=== PATIENT | female | born 1940 | race Caucasian/White ===

== ENCOUNTER 2016-10-09 13:19 | Emergency (ER) | payer MEDICARE ==
[~2016-10-09] VITALS: Ht 147.3 cm; Wt 63.5 kg
[~2016-10-09 13:19] MED LIST: CAT.1 PO; FERR325T30 PO; HYDR25TA4 PO; INSU10VI5 SQ; LISI-600 PO; METF1000 PO; NEU100 PO; NITR-85 PO; NOR10 PO; SITA100T7 PO
[2016-10-09 13:20] VITALS: BP 124/57; PULSE 55; RESP 18; TEMP 97.2; O2SAT 97
--- NOTE | 2016-10-09 14:38 | NUR ---
Patient to ER bed 8 to gown for evaluation. Side rails up. Report given to Efren CROUCH.
--- NOTE | 2016-10-09 14:40 | NUR ---
ED MD Gee at bedside for Medical Evaluation.
--- NOTE | 2016-10-09 14:45 | NUR ---
PT brought in to ED with chief complain of CASTELLANO, Nausea and dizziness secondary to a fall sustained 4 hours ago. PT states possible loss of consciousness. Reports CASTELLANO of 11/28. States she feels lethargic. Pupils PERRLA. No deformity noted to the skull. No bleeding or drainage noted. Daughter at bedside.
--- NOTE | 2016-10-09 14:50 | NUR ---
PT off unit for CT. Transported by jeanne
--- NOTE | 2016-10-09 15:05 | NUR ---
PT transported back to unit via [facility].
[2016-10-09 15:58] VITALS: BP 128/54; PULSE 62; RESP 18; TEMP 97.2; O2SAT 97
--- NOTE | 2016-10-09 15:58 | NUR ---
Patient and daughter given written and verbal discharge instructions and verbalizes understanding. ER MD discussed with patient and daughter the results and treatment provided. Patient in stable condition. ID arm band removed. No Rx given. Patient and daughter educated on pain management and to follow up with PMD. Pain Scale 0/10. Opportunity for questions provided and answered.
== END 2016-10-09 15:58 | disposition home or self-care (01) ==
LOC: SED 13:39
DX: R51 Headache (principal); R11.0 Nausea; R42 Dizziness and giddiness; W01.0XXA Fall on same level from slipping, tripping and stumbling without subsequent striking against object, initial encounter; Z91.81 History of falling; Y93.89 Activity, other specified; Y92.89 Other specified places as the place of occurrence of the external cause; Y99.8 Other external cause status
CPT/HCPCS: 70450-TC; 72125-TC; 99284

== ENCOUNTER 2018-03-15 10:18 | Emergency (ER) | payer MEDICARE ==
[~2018-03-15] VITALS: Ht 152.4 cm; Wt 72.6 kg
[~2018-03-15 10:18] MED LIST changes: -FERR325T30 PO; -HYDR25TA4 PO; -INSU10VI5 SQ; -LISI-600 PO; -NEU100 PO; +SITA100T11 PO; -SITA100T7 PO
[2018-03-15 10:22] VITALS: BP_SYST 147
[2018-03-15] MEDS ORDERED: DIPH-TET Vacc 0.5 ML VIAL I.M. ONE (11:30)
[2018-03-15] MEDS ORDERED: BACITRACIN 1 GM OINT TP ONE (11:40)
[2018-03-15] MEDS ORDERED: HYDROcodone/ACETAMIN 5-325 MG TAB (NORCO/ VICODIN) PO ONE (11:45)
[2018-03-15 11:52] VITALS: BP_SYST 147
== END 2018-03-15 11:53 | disposition home or self-care (01) ==
LOC: SED 10:18
DX: S00.01XA Abrasion of scalp, initial encounter (principal); E11.9 Type 2 diabetes mellitus without complications; I10 Essential (primary) hypertension; Z90.89 Acquired absence of other organs; Z90.49 Acquired absence of other specified parts of digestive tract; Z90.710 Acquired absence of both cervix and uterus; W19.XXXA Unspecified fall, initial encounter; Y93.89 Activity, other specified; Y92.89 Other specified places as the place of occurrence of the external cause; Y99.8 Other external cause status
CPT/HCPCS: 70450-TC; 90714; 99284

== ENCOUNTER 2018-04-04 19:24 | Emergency (ER) | payer MEDICARE ==
[~2018-04-04] VITALS: Ht 152.4 cm; Wt 62.6 kg
[2018-04-04 19:29] VITALS: BP_SYST 162
--- NOTE | 2018-04-04 19:34 | NUR ---
Patient triaged and placed in waiting room. VSS and patient appears in no acute distress at this time. Accompanied by daughter, awaiting available bed, and MD notified of need for MSE.
--- NOTE | 2018-04-04 19:55 | NUR ---
Pt came in AAOX4 presenting of generalized weakness. Has history of DM, HPN, Glaucoma, arthritis, hysterectomy and gall bladder removal. No allergies noted. Denies pain, fever and shortness of breath. Safety precaution observed, side rails up. Will continue to monitor Pt.
--- NOTE | 2018-04-04 20:00 | NUR ---
Placed in room 03 . Placed on case monitor, blood pressure machine and pulse oximeter. To gown for exam. Side rails up. Report given to MIKO Jacome.
[2018-04-04] MEDS ORDERED: NACL 0.9% 1,000 ML IV ONE (20:07)
--- NOTE | 2018-04-04 20:10 | NUR ---
RICKY Matos at bedside for medical evaluation.
--- NOTE | 2018-04-04 20:20 | NUR ---
X-ray at bedside
[2018-04-04 20:31] LABS: BILIRUBIN,URINE NEGATIVE (NEGATIVE); BLOOD, URINE NEGATIVE (NEGATIVE); CLARITY/URINE CLEAR (CLEAR); COLOR,URINE YELLOW (YELLOW); GLUCOSE,URINE 1+ (NEGATIVE); KETONES,URINE NEGATIVE (NEGATIVE); LEUKOCYTE ESTERASE ,URINE 1+ (NEGATIVE); NITRITE, URINE NEGATIVE (NEGATIVE); PROTEIN URINE NEGATIVE (NEGATIVE); UROBILINOGEN,URINE 0.2 (0.2-1.0)
[2018-04-04 20:36] LABS: BASOPHILS # (AUTO) 0.1 K/uL (0.0-0.2); BASOPHILS % (AUTO) 1.6 % (0.0-2.0); EOSINOPHILS # (AUTO) 0.2 K/uL (0.0-0.4); EOSINOPHILS % (AUTO) 3.3 % (0.0-4.0); HEMATOCRIT 39.9 % (36-48); LYMPHOCYTES # (AUTO) 1.5 K/uL (1.0-5.5); LYMPHOCYTES % (AUTO) 26.9 % (20.5-51.5); MEAN CORPUSCULAR HEMOGLOBIN 30 pg (27-31); MEAN CORPUSCULAR HGB CONC 33 % (32-36); MEAN CORPUSCULAR VOLUME 91 fL (79.0-98.0); MONOCYTES # (AUTO) 0.5 K/uL (0.0-1.0); MONOCYTES % (AUTO) 9.3 % (1.7-9.3); NEUTROPHILS # (AUTO) 3.2 K/uL (1.8-7.7); NEUTROPHILS % (AUTO) 58.9 % (40.0-70.0); PLATELET COUNT (AUTO) 310 K/uL (130-430); RED BLOOD CELL COUNT(AUTO) 4.36 MIL/uL (4.2-6.2); RED CELL DISTRIBUTION WIDTH 12.6 % (9.0-15.0); WHITE BLOOD COUNT (AUTO) 5.5 K/uL (4.8-10.8)
[2018-04-04 20:43] LABS: RBC,URINE 0-3 /HPF (0-3)
[2018-04-04 20:44] LABS: BACTERIA,URINE FEW /HPF (None Seen); MUCUS,URINE None Seen /LPF (None Seen)
[2018-04-04 20:56] LABS: ANION GAP 8 (5-15); CALCIUM 9.3 mg/dL (8.4-11.0); CHLORIDE 98 mmol/L (98-107); CREATININE 0.98 mg/dL (0.55-1.30); GLUCOSE 256 mg/dL (70-99); SODIUM SERUM 132 mmol/L (136-145); UREA NITROGEN, BLOOD 11 mg/dL (8-21)
[2018-04-04 21:01] LABS: ALANINE AMINOTRANSFERASE 18 U/L (12-78); ALBUMIN 4.1 g/dL (3.4-4.8); ASPARTATE AMINOTRANSFERASE 13 U/L (10-37); TOTAL BILIRUBIN 0.5 mg/dL (0.0-1.0)
[2018-04-04 21:30] VITALS: BP_SYST 146
--- NOTE | 2018-04-04 21:30 | NUR ---
Patient given written and verbal discharge instructions and verbalizes understanding. ER MD Matos discussed with patient the results and treatment provided. Patient in stable condition. ID arm band removed. IV catheter removed intact and dressing applied, no active bleeding. Rx of cipro given. Patient educated on pain management and to follow up with PMD. Pain Scale 0/10. Opportunity for questions provided and answered. Medication side effect fact sheet provided.
== END 2018-04-04 21:30 | disposition home or self-care (01) ==
LOC: SED 19:24
DX: N39.0 Urinary tract infection, site not specified (principal); E11.9 Type 2 diabetes mellitus without complications; I10 Essential (primary) hypertension; Z90.49 Acquired absence of other specified parts of digestive tract; Z90.710 Acquired absence of both cervix and uterus; Z98.890 Other specified postprocedural states; Z79.899 Other long term (current) drug therapy
CPT/HCPCS: 36415; 71045; 80053; 81000; 85025; 87086; 93005; 99285; J7030

== ENCOUNTER 2019-01-26 14:18 | Emergency (ER) | payer MEDICARE ==
[~2019-01-26] VITALS: Ht 149.9 cm; Wt 64.4 kg
[2019-01-26 14:31] VITALS: BP_SYST 165
[2019-01-26] MEDS ORDERED: NEU100 PO (14:46)
[2019-01-26] MEDS ORDERED: FAMO40TA7 PO (14:46)
[2019-01-26] MEDS ORDERED: METF1000 PO (14:46)
[2019-01-26] MEDS ORDERED: INSNLG7030 SUBCUT (14:46)
[2019-01-26] MEDS ORDERED: LISI40TA4 PO (14:46)
[2019-01-26] MEDS ORDERED: HYDR12.585 PO (14:46)
[2019-01-26] MEDS ORDERED: MECLIZINE HCL 25 MG TABLET (ANITVERT) PO ONE (15:15)
[2019-01-26 15:32] LABS: BASOPHILS % (AUTO) 0.4 % (0.0-2.0); EOSINOPHILS # (AUTO) 0.1 K/uL (0.0-0.4); EOSINOPHILS % (AUTO) 0.7 % (0.0-4.0); HEMATOCRIT 38.1 % (36-48); HEMOGLOBIN 12.9 g/dL (12.0-16.0); LYMPHOCYTES % (AUTO) 11.7 % (20.5-51.5); MEAN CORPUSCULAR HEMOGLOBIN 30 pg (27-31); MEAN CORPUSCULAR HGB CONC 34 % (32-36); MEAN CORPUSCULAR VOLUME 89 fL (79.0-98.0); MONOCYTES # (AUTO) 0.3 K/uL (0.0-1.0); MONOCYTES % (AUTO) 3.9 % (1.7-9.3); NEUTROPHILS # (AUTO) 7.4 K/uL (1.8-7.7); NEUTROPHILS % (AUTO) 83.3 % (40.0-70.0); PLATELET COUNT (AUTO) 216 K/uL (130-430); RED BLOOD CELL COUNT(AUTO) 4.27 MIL/uL (4.2-6.2); RED CELL DISTRIBUTION WIDTH 13.6 % (9.0-15.0); WHITE BLOOD COUNT (AUTO) 8.9 K/uL (4.8-10.8)
[2019-01-26 15:42] LABS: ANION GAP 11 (5-15); CALCIUM 8.7 mg/dL (8.4-11.0); CHLORIDE 95 mmol/L (98-107); CREATININE 0.64 mg/dL (0.55-1.30); GLUCOSE 114 mg/dL (70-99); POTASSIUM 3.9 mmol/L (3.5-5.1); SODIUM SERUM 131 mmol/L (136-145); UREA NITROGEN, BLOOD 11 mg/dL (8-21)
[2019-01-26 15:48] LABS: ALANINE AMINOTRANSFERASE 11 U/L (12-78); ALBUMIN 3.6 g/dL (3.4-4.8); ASPARTATE AMINOTRANSFERASE 17 U/L (10-37); TOTAL BILIRUBIN 0.9 mg/dL (0.0-1.0)
== END 2019-01-26 16:48 | disposition home or self-care (01) ==
LOC: SED 14:18
DX: H81.10 Benign paroxysmal vertigo, unspecified ear (principal); F41.9 Anxiety disorder, unspecified
CPT/HCPCS: 36415; 71045; 80053; 81002; 82550; 84484; 85025; 93005; 99284; J8597

== ENCOUNTER 2020-06-10 15:22 | Inpatient (IN) | payer MEDICAID, MEDICARE, SELFPAY ==
[~2020-06-10] VITALS: Ht 149.9 cm; Wt 57.6 kg
[~2020-06-10 15:22] MED LIST changes: -CAT.1 PO; +FAMO40TA7 PO; +HYDR12.585 PO; +INSNLG7030 SUBCUT; +LISI40TA4 PO; +NEU100 PO; -NITR-85 PO; -SITA100T11 PO
[2020-06-10 15:54] VITALS: BP_SYST 136
[2020-06-10 16:42] LABS: BASOPHILS % (AUTO) 0.2 % (0.0-2.0); HEMATOCRIT 34.9 % (36-48); LYMPHOCYTES # (AUTO) 0.5 K/uL (1.0-5.5); LYMPHOCYTES % (AUTO) 9.5 % (20.5-51.5); MEAN CORPUSCULAR HEMOGLOBIN 30 pg (27-31); MEAN CORPUSCULAR HGB CONC 34 % (32-36); MEAN CORPUSCULAR VOLUME 88 fL (79.0-98.0); MONOCYTES # (AUTO) 0.2 K/uL (0.0-1.0); MONOCYTES % (AUTO) 4.3 % (1.7-9.3); NEUTROPHILS # (AUTO) 4.5 K/uL (1.8-7.7); PLATELET COUNT (AUTO) 261 K/uL (130-430); RED BLOOD CELL COUNT(AUTO) 3.96 MIL/uL (4.2-6.2); RED CELL DISTRIBUTION WIDTH 12.7 % (9.0-15.0); WHITE BLOOD COUNT (AUTO) 5.2 K/uL (4.8-10.8)
[2020-06-10] MEDS ORDERED: DEXAMETHASONE SOD PHOSPHATE 10 MG/ML VIAL IVP ONE (16:45)
[2020-06-10] MEDS ORDERED: cefTRIAXone 1 GM in D5W 50 ML IV ONE (16:45)
[2020-06-10] MEDS ORDERED: AZITHROMYCIN 500 MG in NS 250 ML IV ONE (16:45)
[2020-06-10 17:04] LABS: ANION GAP 11 (5-15); CALCIUM 8.6 mg/dL (8.4-11.0); CHLORIDE 94 mmol/L (98-107); CREATININE 0.84 mg/dL (0.55-1.30); GLUCOSE 120 mg/dL (70-99); POTASSIUM 3.3 mmol/L (3.5-5.1); SODIUM SERUM 131 mmol/L (136-145); UREA NITROGEN, BLOOD 13 mg/dL (8-21)
[2020-06-10 17:09] LABS: ALANINE AMINOTRANSFERASE 19 U/L (12-78); ASPARTATE AMINOTRANSFERASE 28 U/L (10-37); LACTATE DEHYDROGENASE 328 U/L (81-234); TOTAL BILIRUBIN 0.5 mg/dL (0.0-1.0)
[2020-06-10 17:17] LABS: PROTHROMBIN TIME 9.9 SECS (9.5-12.5)
[2020-06-10 17:43] LABS: C-REACTIVE PROTEIN QUANT 25.9 mg/dL (0-0.5)
[2020-06-10] MEDS ORDERED: cefTRIAXone 1 GM VIAL ONE (17:45)
[2020-06-10] MEDS ORDERED: AZITHROMYCIN 500 MG/VIAL (ZITHROMAX) IV ONE ×2 (17:46→17:47)
[2020-06-10 19:08] LABS: BILIRUBIN,URINE NEGATIVE (NEGATIVE); BLOOD, URINE NEGATIVE (NEGATIVE); CLARITY/URINE CLOUDY (CLEAR); COLOR,URINE YELLOW (YELLOW); GLUCOSE,URINE NEGATIVE (NEGATIVE); KETONES,URINE NEGATIVE (NEGATIVE); LEUKOCYTE ESTERASE ,URINE NEGATIVE (NEGATIVE); NITRITE, URINE NEGATIVE (NEGATIVE); PROTEIN URINE 2+ (NEGATIVE); UROBILINOGEN,URINE 0.2 (0.2-1.0)
[2020-06-10 20:23] LABS: BACTERIA,URINE MANY /HPF (None Seen); MUCUS,URINE None Seen /LPF (None Seen); RBC,URINE NONE SEEN /HPF (0-3); WBC,URINE 0-3 /HPF (0-3)
[2020-06-10 23:00] VITALS: BP_SYST 155
[2020-06-11 02:00] VITALS: BP_SYST 139
[2020-06-11] MEDS ORDERED: ALBUTEROL SULFATE 0.083% 2.5 MG/3 ML VIAL.NEB INH PRN (06:45)
[2020-06-11] MEDS ORDERED: HYDROcodone/ACETAMIN 5-325 MG TAB (NORCO/ VICODIN) PO PRN (06:45)
[2020-06-11] MEDS ORDERED: NALOXONE HCL 0.4 MG/ML AMP (NARCAN) IVP PRN ×2 (06:45)
[2020-06-11] MEDS ORDERED: ACETAMINOPHEN 325 MG TABLET PO PRN (06:45)
[2020-06-11] MEDS ORDERED: ONDANSETRON HCL 4 MG/2 ML VIAL IVP PRN (06:45)
[2020-06-11] MEDS ORDERED: HYDROcodone/ACETAMIN 10-325 MG TAB PO PRN (06:45)
[2020-06-11] MEDS ORDERED: LORazepam 2 MG/ML VIAL IVP PRN (06:45)
[2020-06-11] MEDS ORDERED: DEXAMETHASONE SOD PHOSPHATE 10 MG/ML VIAL IVP SCH (06:45)
[2020-06-11] MEDS: ALBUTEROL MDI INHALATION 8 GM INH INH SCH ×4 (07:00→19:50)
[2020-06-11] MEDS ORDERED: IPRATROPIUM BROM 0.5 MG/2.5 ML VIAL.NEB (ATROVENT) INH SCH (07:00)
[2020-06-11] MEDS ORDERED: DEXAMETHASONE SOD PHOSPHATE 10 MG/ML VIAL ONE (10:05)
[2020-06-11] MEDS: metFORMIN HCL 500 MG TABLET PO SCH ×2 (10:07→17:10)
[2020-06-11] MEDS: FAMOTIDINE 20 MG TABLET PO SCH (10:07)
[2020-06-11] MEDS: HYDROCHLOROTHIAZIDE 12.5 MG CAPSULE (HCTZ) PO SCH (10:08)
[2020-06-11] MEDS: amLODIPine BESYLATE 10 MG TABLET PO SCH (10:08)
[2020-06-11 10:09] LABS: BASOPHILS % (AUTO) 0.2 % (0.0-2.0); HEMATOCRIT 36.2 % (36-48); HEMOGLOBIN 12.4 g/dL (12.0-16.0); LYMPHOCYTES # (AUTO) 0.6 K/uL (1.0-5.5); LYMPHOCYTES % (AUTO) 8.4 % (20.5-51.5); MEAN CORPUSCULAR HEMOGLOBIN 30 pg (27-31); MEAN CORPUSCULAR HGB CONC 34 % (32-36); MEAN CORPUSCULAR VOLUME 89 fL (79.0-98.0); MONOCYTES # (AUTO) 0.6 K/uL (0.0-1.0); MONOCYTES % (AUTO) 8.5 % (1.7-9.3); NEUTROPHILS # (AUTO) 5.9 K/uL (1.8-7.7); NEUTROPHILS % (AUTO) 82.9 % (40.0-70.0); PLATELET COUNT (AUTO) 313 K/uL (130-430); RED BLOOD CELL COUNT(AUTO) 4.07 MIL/uL (4.2-6.2); RED CELL DISTRIBUTION WIDTH 12.7 % (9.0-15.0); WHITE BLOOD COUNT (AUTO) 7.2 K/uL (4.8-10.8)
[2020-06-11] MEDS: cefTRIAXone 1 GM IVPB PREMIX 50 ML IV SCH (10:09)
[2020-06-11] MEDS: GABAPENTIN 100 MG CAPSULE PO SCH ×3 (10:09→21:30)
[2020-06-11] MEDS: DEXAMETHASONE SOD PHOSPHATE 10 MG/ML VIAL IVP SCH (10:10)
[2020-06-11] MEDS: AZITHROMYCIN 500 MG in NS 250 ML IV SCH (10:12)
[2020-06-11] MEDS ORDERED: DEXAMETHASONE SOD PHOSPHATE 10 MG/ML VIAL IVP ONE (10:15)
[2020-06-11 10:36] LABS: CALCIUM 8.5 mg/dL (8.4-11.0); CHLORIDE 93 mmol/L (98-107); CREATININE 0.84 mg/dL (0.55-1.30); GLUCOSE 331 mg/dL (70-99); POTASSIUM 3.2 mmol/L (3.5-5.1); SODIUM SERUM 131 mmol/L (136-145); UREA NITROGEN, BLOOD 14 mg/dL (8-21)
[2020-06-11] MEDS: INSULIN NPH/REGULAR 70-30, 100 UNITS/ML, 10 ML VIAL SUBCUT SCH (10:37)
[2020-06-11 10:38] VITALS: BP_SYST 143
[2020-06-11 10:56] LABS: ANION GAP 14 (5-15)
[2020-06-11 11:32] VITALS: BP_SYST 128
[2020-06-11] MEDS ORDERED: AZOEYE RIGHT EYE (12:16)
[2020-06-11] MEDS ORDERED: TIMO5DRO15 RIGHT EYE (12:16)
[2020-06-11] MEDS: INSULIN REGULAR, HUMAN 100 UNITS/ML, 10 ML VIAL (humuLIN R) SUBCUT PRN ×3 (12:28→21:00)
[2020-06-11] MEDS: APIXABAN 2.5 MG TABLET PO SCH ×2 (12:29→21:30)
[2020-06-11 12:36] LABS: ERYTHROCYTE SEDIMENTATION RATE 81 MM/HR (0-20)
[2020-06-11 13:18] LABS: C-REACTIVE PROTEIN QUANT 22.5 mg/dL (0-0.5)
[2020-06-11] MEDS: NORMAL SALINE 5 ML DISP.SYRIN IVF SCH ×2 (13:51→21:30)
[2020-06-11] MEDS ORDERED: NORMAL SALINE 5 ML DISP.SYRIN IVF SCH (14:00)
[2020-06-11] MEDS ORDERED: BRINZOLAMIDE 1% BOTH EYES SCH (14:00)
[2020-06-11 16:13] VITALS: BP_SYST 129
[2020-06-11] MEDS ORDERED: LIPA1CAP23 PO ×2 (16:27)
[2020-06-11] MEDS ORDERED: CREON 36000 UNIT PO PRN (16:45)
[2020-06-11 16:54] VITALS: BP_SYST 129
[2020-06-11] MEDS: CREON 36000 UNIT PO SCH (17:09)
[2020-06-11 21:00] VITALS: BP_SYST 138
[2020-06-11] MEDS: EYE OP SCH (21:30)
[2020-06-11] MEDS: TIMOLOL MALEATE 0.5% OPHTHALMIC DROPS 5 ML OP SCH (21:30)
[2020-06-11] MEDS: lisinopriL 20 MG TABLET PO SCH (21:30)
[2020-06-11] MEDS: AZOPT 1% OP SCH (21:30)
[2020-06-11] MEDS ORDERED: DORZOLAMIDE 2% OPHTHALMIC SOLN 5ML OP SCH (22:00)
[2020-06-11] MEDS ORDERED: DILTIAZEM HCL 30 MG TABLET PO ONE (22:30)
[2020-06-12] VITALS: BP_SYST 106
[2020-06-12] MEDS: ALBUTEROL MDI INHALATION 8 GM INH INH SCH ×6 (00:05→23:53)
[2020-06-12] MEDS: NORMAL SALINE 5 ML DISP.SYRIN IVF SCH ×3 (06:31→22:00)
[2020-06-12 06:33] LABS: BASOPHILS % (AUTO) 0.1 % (0.0-2.0); HEMATOCRIT 35.3 % (36-48); HEMOGLOBIN 11.9 g/dL (12.0-16.0); LYMPHOCYTES # (AUTO) 0.8 K/uL (1.0-5.5); LYMPHOCYTES % (AUTO) 6.9 % (20.5-51.5); MEAN CORPUSCULAR HEMOGLOBIN 30 pg (27-31); MEAN CORPUSCULAR HGB CONC 34 % (32-36); MEAN CORPUSCULAR VOLUME 88 fL (79.0-98.0); MONOCYTES # (AUTO) 0.6 K/uL (0.0-1.0); MONOCYTES % (AUTO) 5.8 % (1.7-9.3); NEUTROPHILS # (AUTO) 9.6 K/uL (1.8-7.7); NEUTROPHILS % (AUTO) 87.2 % (40.0-70.0); PLATELET COUNT (AUTO) 350 K/uL (130-430); RED BLOOD CELL COUNT(AUTO) 4.02 MIL/uL (4.2-6.2); RED CELL DISTRIBUTION WIDTH 13.1 % (9.0-15.0)
[2020-06-12] MEDS: INSULIN REGULAR, HUMAN 100 UNITS/ML, 10 ML VIAL (humuLIN R) SUBCUT PRN ×2 (06:38→21:38)
[2020-06-12 07:19] LABS: ALANINE AMINOTRANSFERASE 14 U/L (12-78); ALBUMIN 2.3 g/dL (3.4-4.8); ANION GAP 13 (5-15); ASPARTATE AMINOTRANSFERASE 36 U/L (10-37); CALCIUM 8.2 mg/dL (8.4-11.0); CHLORIDE 95 mmol/L (98-107); CREATININE 0.71 mg/dL (0.55-1.30); GLUCOSE 172 mg/dL (70-99); PHOSPHORUS 3.7 mg/dL (2.7-4.5); POTASSIUM 3.1 mmol/L (3.5-5.1); SODIUM SERUM 132 mmol/L (136-145); TOTAL BILIRUBIN 0.4 mg/dL (0.0-1.0); UREA NITROGEN, BLOOD 13 mg/dL (8-21)
[2020-06-12 08:00] VITALS: BP_SYST 123
[2020-06-12] MEDS: INSULIN NPH/REGULAR 70-30, 100 UNITS/ML, 10 ML VIAL SUBCUT SCH (08:00)
[2020-06-12] MEDS: metFORMIN HCL 500 MG TABLET PO SCH ×2 (08:00→18:40)
[2020-06-12 09:00] LABS: ERYTHROCYTE SEDIMENTATION RATE 78 MM/HR (0-20)
[2020-06-12] MEDS: amLODIPine BESYLATE 10 MG TABLET PO SCH (09:00)
[2020-06-12] MEDS: FAMOTIDINE 20 MG TABLET PO SCH (09:00)
[2020-06-12] MEDS: EYE OP SCH ×3 (09:00→21:00)
[2020-06-12] MEDS: cefTRIAXone 1 GM IVPB PREMIX 50 ML IV SCH (09:00)
[2020-06-12] MEDS: AZOPT 1% OP SCH ×3 (09:00→21:00)
[2020-06-12] MEDS: GABAPENTIN 100 MG CAPSULE PO SCH ×3 (09:00→21:00)
[2020-06-12] MEDS: CREON 36000 UNIT PO SCH ×3 (09:00→17:00)
[2020-06-12] MEDS: HYDROCHLOROTHIAZIDE 12.5 MG CAPSULE (HCTZ) PO SCH (09:00)
[2020-06-12] MEDS: APIXABAN 2.5 MG TABLET PO SCH ×2 (09:00→21:00)
[2020-06-12] MEDS: DEXAMETHASONE SOD PHOSPHATE 10 MG/ML VIAL IVP SCH (09:00)
[2020-06-12] MEDS: TIMOLOL MALEATE 0.5% OPHTHALMIC DROPS 5 ML OP SCH ×2 (09:00→21:00)
[2020-06-12 10:41] LABS: C-REACTIVE PROTEIN QUANT 17.3 mg/dL (0-0.5)
[2020-06-12] MEDS: AZITHROMYCIN 500 MG in NS 250 ML IV SCH (10:49)
[2020-06-12 11:08] VITALS: BP_SYST 118
[2020-06-12 15:32] VITALS: BP_SYST 110
[2020-06-12 20:00] VITALS: BP_SYST 116; BP_SYST 135
[2020-06-12] MEDS: lisinopriL 20 MG TABLET PO SCH (21:00)
[2020-06-13] VITALS: BP_SYST 125
[2020-06-13] MEDS: ALBUTEROL MDI INHALATION 8 GM INH INH SCH ×4 (03:53→15:48)
[2020-06-13] MEDS: NORMAL SALINE 5 ML DISP.SYRIN IVF SCH ×3 (06:42→22:59)
[2020-06-13] MEDS: INSULIN REGULAR, HUMAN 100 UNITS/ML, 10 ML VIAL (humuLIN R) SUBCUT PRN ×3 (06:47→23:00)
[2020-06-13] MEDS: metFORMIN HCL 500 MG TABLET PO SCH ×2 (08:00→18:13)
[2020-06-13] MEDS: INSULIN NPH/REGULAR 70-30, 100 UNITS/ML, 10 ML VIAL SUBCUT SCH (08:00)
[2020-06-13] MEDS: cefTRIAXone 1 GM IVPB PREMIX 50 ML IV SCH (09:00)
[2020-06-13 09:21] VITALS: BP_SYST 120
[2020-06-13] MEDS: APIXABAN 2.5 MG TABLET PO SCH ×2 (10:00→20:05)
[2020-06-13] MEDS: AZITHROMYCIN 500 MG in NS 250 ML IV SCH (10:00)
[2020-06-13 10:33] LABS: ALANINE AMINOTRANSFERASE 19 U/L (12-78); ALBUMIN 2.2 g/dL (3.4-4.8); ASPARTATE AMINOTRANSFERASE 45 U/L (10-37); CALCIUM 8.3 mg/dL (8.4-11.0); CHLORIDE 95 mmol/L (98-107); CREATININE 0.86 mg/dL (0.55-1.30); GLUCOSE 220 mg/dL (70-99); SODIUM SERUM 133 mmol/L (136-145); TOTAL BILIRUBIN 0.6 mg/dL (0.0-1.0); UREA NITROGEN, BLOOD 21 mg/dL (8-21)
[2020-06-13 10:37] LABS: ANION GAP 13 (5-15)
[2020-06-13 10:38] LABS: HEMATOCRIT 37.1 % (36-48); HEMOGLOBIN 12.5 g/dL (12.0-16.0); LYMPHOCYTES # (AUTO) 0.8 K/uL (1.0-5.5); LYMPHOCYTES % (AUTO) 5.8 % (20.5-51.5); MEAN CORPUSCULAR HEMOGLOBIN 30 pg (27-31); MEAN CORPUSCULAR HGB CONC 34 % (32-36); MEAN CORPUSCULAR VOLUME 88 fL (79.0-98.0); MONOCYTES # (AUTO) 0.7 K/uL (0.0-1.0); MONOCYTES % (AUTO) 5.4 % (1.7-9.3); NEUTROPHILS # (AUTO) 11.9 K/uL (1.8-7.7); NEUTROPHILS % (AUTO) 88.8 % (40.0-70.0); PLATELET COUNT (AUTO) 297 K/uL (130-430); RED CELL DISTRIBUTION WIDTH 12.9 % (9.0-15.0); WHITE BLOOD COUNT (AUTO) 13.4 K/uL (4.8-10.8)
[2020-06-13 10:47] LABS: POTASSIUM 2.8 mmol/L (3.5-5.1)
[2020-06-13] MEDS: CREON 36000 UNIT PO SCH ×3 (10:51→18:13)
[2020-06-13] MEDS: DEXAMETHASONE SOD PHOSPHATE 10 MG/ML VIAL IVP SCH (10:52)
[2020-06-13] MEDS: FAMOTIDINE 20 MG TABLET PO SCH (10:53)
[2020-06-13] MEDS: amLODIPine BESYLATE 10 MG TABLET PO SCH (10:54)
[2020-06-13] MEDS: GABAPENTIN 100 MG CAPSULE PO SCH ×3 (10:55→20:05)
[2020-06-13] MEDS: HYDROCHLOROTHIAZIDE 12.5 MG CAPSULE (HCTZ) PO SCH (10:55)
[2020-06-13] MEDS: AZOPT 1% OP SCH ×3 (10:56→20:05)
[2020-06-13] MEDS: EYE OP SCH ×3 (10:56→20:05)
[2020-06-13] MEDS: TIMOLOL MALEATE 0.5% OPHTHALMIC DROPS 5 ML OP SCH ×2 (10:56→20:05)
[2020-06-13 11:21] VITALS: BP_SYST 118
[2020-06-13 11:40] LABS: C-REACTIVE PROTEIN QUANT 27.8 mg/dL (0-0.5); ERYTHROCYTE SEDIMENTATION RATE 71 MM/HR (0-20)
[2020-06-13 15:16] VITALS: BP_SYST 132
[2020-06-13] MEDS ORDERED: KCL 40 mEq in 100 mL (PREMIX) 100 ML IV ONE (16:00)
[2020-06-13] MEDS: lisinopriL 20 MG TABLET PO SCH (20:05)
[2020-06-13 20:20] VITALS: BP_SYST 138
[2020-06-14] VITALS (13 sets, daily range): BP systolic 123–148
[2020-06-14] MEDS: NORMAL SALINE 5 ML DISP.SYRIN IVF SCH ×2 (06:42→22:00)
[2020-06-14 08:20] LABS: BASOPHILS % (AUTO) 0.1 % (0.0-2.0); EOSINOPHILS # (AUTO) 0.1 K/uL (0.0-0.4); EOSINOPHILS % (AUTO) 0.3 % (0.0-4.0); HEMATOCRIT 36.7 % (36-48); HEMOGLOBIN 12.3 g/dL (12.0-16.0); LYMPHOCYTES # (AUTO) 0.9 K/uL (1.0-5.5); LYMPHOCYTES % (AUTO) 4.7 % (20.5-51.5); MEAN CORPUSCULAR HEMOGLOBIN 30 pg (27-31); MEAN CORPUSCULAR HGB CONC 34 % (32-36); MEAN CORPUSCULAR VOLUME 88 fL (79.0-98.0); MONOCYTES # (AUTO) 0.9 K/uL (0.0-1.0); MONOCYTES % (AUTO) 4.8 % (1.7-9.3); NEUTROPHILS # (AUTO) 17.8 K/uL (1.8-7.7); NEUTROPHILS % (AUTO) 90.1 % (40.0-70.0); PLATELET COUNT (AUTO) 241 K/uL (130-430); RED BLOOD CELL COUNT(AUTO) 4.17 MIL/uL (4.2-6.2); RED CELL DISTRIBUTION WIDTH 13.1 % (9.0-15.0); WHITE BLOOD COUNT (AUTO) 19.8 K/uL (4.8-10.8)
[2020-06-14] MEDS: ALBUTEROL MDI INHALATION 8 GM INH INH SCH ×3 (08:20→23:39)
[2020-06-14 08:59] LABS: ALANINE AMINOTRANSFERASE 22 U/L (12-78); ALBUMIN 2.4 g/dL (3.4-4.8); ANION GAP 14 (5-15); ASPARTATE AMINOTRANSFERASE 58 U/L (10-37); CALCIUM 8.6 mg/dL (8.4-11.0); CHLORIDE 97 mmol/L (98-107); CREATININE 0.64 mg/dL (0.55-1.30); GLUCOSE 149 mg/dL (70-99); SODIUM SERUM 133 mmol/L (136-145); TOTAL BILIRUBIN 0.9 mg/dL (0.0-1.0); UREA NITROGEN, BLOOD 25 mg/dL (8-21)
[2020-06-14 09:35] LABS: C-REACTIVE PROTEIN QUANT 36.5 mg/dL (0-0.5)
[2020-06-14 10:10] LABS: ERYTHROCYTE SEDIMENTATION RATE 67 MM/HR (0-20)
[2020-06-14] MEDS: HYDROCHLOROTHIAZIDE 12.5 MG CAPSULE (HCTZ) PO SCH (10:10)
[2020-06-14] MEDS: DEXAMETHASONE SOD PHOSPHATE 10 MG/ML VIAL IVP SCH (10:10)
[2020-06-14] MEDS: FAMOTIDINE 20 MG TABLET PO SCH (10:10)
[2020-06-14] MEDS: EYE OP SCH ×3 (10:10→21:22)
[2020-06-14] MEDS: CREON 36000 UNIT PO SCH ×2 (10:10→17:00)
[2020-06-14] MEDS: amLODIPine BESYLATE 10 MG TABLET PO SCH (10:10)
[2020-06-14] MEDS: AZOPT 1% OP SCH ×3 (10:10→21:22)
[2020-06-14] MEDS: APIXABAN 2.5 MG TABLET PO SCH ×2 (10:10→21:20)
[2020-06-14] MEDS: GABAPENTIN 100 MG CAPSULE PO SCH ×3 (10:10→21:22)
[2020-06-14] MEDS: TIMOLOL MALEATE 0.5% OPHTHALMIC DROPS 5 ML OP SCH ×2 (10:10→21:22)
[2020-06-14] MEDS: INSULIN NPH/REGULAR 70-30, 100 UNITS/ML, 10 ML VIAL SUBCUT SCH (10:10)
[2020-06-14] MEDS: metFORMIN HCL 500 MG TABLET PO SCH ×2 (10:10→18:21)
[2020-06-14] MEDS: cefTRIAXone 1 GM IVPB PREMIX 50 ML IV SCH (10:10)
[2020-06-14] MEDS: AZITHROMYCIN 500 MG in NS 250 ML IV SCH (10:40)
[2020-06-14] MEDS: INSULIN REGULAR, HUMAN 100 UNITS/ML, 10 ML VIAL (humuLIN R) SUBCUT PRN ×3 (11:46→21:20)
[2020-06-14] MEDS: lisinopriL 20 MG TABLET PO SCH (21:23)
[2020-06-15] VITALS (13 sets, daily range): BP systolic 113–160
[2020-06-15] MEDS: ALBUTEROL MDI INHALATION 8 GM INH INH SCH ×5 (03:44→23:44)
[2020-06-15] MEDS: NORMAL SALINE 5 ML DISP.SYRIN IVF SCH ×3 (05:30→23:09)
[2020-06-15] MEDS: INSULIN REGULAR, HUMAN 100 UNITS/ML, 10 ML VIAL (humuLIN R) SUBCUT PRN ×2 (06:02→17:17)
[2020-06-15 07:38] LABS: BASOPHILS % (AUTO) 0.1 % (0.0-2.0); EOSINOPHILS % (AUTO) 0.2 % (0.0-4.0); HEMATOCRIT 35.4 % (36-48); HEMOGLOBIN 11.9 g/dL (12.0-16.0); LYMPHOCYTES # (AUTO) 0.7 K/uL (1.0-5.5); LYMPHOCYTES % (AUTO) 3.2 % (20.5-51.5); MEAN CORPUSCULAR HEMOGLOBIN 29 pg (27-31); MEAN CORPUSCULAR HGB CONC 34 % (32-36); MEAN CORPUSCULAR VOLUME 87 fL (79.0-98.0); MONOCYTES # (AUTO) 1.1 K/uL (0.0-1.0); MONOCYTES % (AUTO) 4.7 % (1.7-9.3); NEUTROPHILS # (AUTO) 20.7 K/uL (1.8-7.7); PLATELET COUNT (AUTO) 206 K/uL (130-430); RED BLOOD CELL COUNT(AUTO) 4.05 MIL/uL (4.2-6.2); WHITE BLOOD COUNT (AUTO) 22.6 K/uL (4.8-10.8)
[2020-06-15] MEDS: INSULIN NPH/REGULAR 70-30, 100 UNITS/ML, 10 ML VIAL SUBCUT SCH (08:00)
[2020-06-15] MEDS: metFORMIN HCL 500 MG TABLET PO SCH ×2 (08:00→17:46)
[2020-06-15 08:08] LABS: ALANINE AMINOTRANSFERASE 20 U/L (12-78); ALBUMIN 2.1 g/dL (3.4-4.8); ANION GAP 12 (5-15); ASPARTATE AMINOTRANSFERASE 38 U/L (10-37); CALCIUM 8.5 mg/dL (8.4-11.0); CHLORIDE 99 mmol/L (98-107); CREATININE 0.79 mg/dL (0.55-1.30); GLUCOSE 161 mg/dL (70-99); POTASSIUM 3.2 mmol/L (3.5-5.1); SODIUM SERUM 137 mmol/L (136-145); TOTAL BILIRUBIN 0.9 mg/dL (0.0-1.0); UREA NITROGEN, BLOOD 25 mg/dL (8-21)
[2020-06-15] MEDS: CREON 36000 UNIT PO SCH ×3 (09:00→16:16)
[2020-06-15] MEDS: APIXABAN 2.5 MG TABLET PO SCH ×2 (09:00→22:02)
[2020-06-15] MEDS: TIMOLOL MALEATE 0.5% OPHTHALMIC DROPS 5 ML OP SCH ×2 (10:03→21:00)
[2020-06-15] MEDS: EYE OP SCH ×3 (10:03→21:00)
[2020-06-15] MEDS: DEXAMETHASONE SOD PHOSPHATE 10 MG/ML VIAL IVP SCH (10:03)
[2020-06-15] MEDS: AZOPT 1% OP SCH ×3 (10:03→21:00)
[2020-06-15] MEDS: HYDROCHLOROTHIAZIDE 12.5 MG CAPSULE (HCTZ) PO SCH (10:04)
[2020-06-15] MEDS: GABAPENTIN 100 MG CAPSULE PO SCH ×3 (10:04→21:53)
[2020-06-15] MEDS: amLODIPine BESYLATE 10 MG TABLET PO SCH (10:04)
[2020-06-15] MEDS: FAMOTIDINE 20 MG TABLET PO SCH (10:04)
[2020-06-15] MEDS: cefTRIAXone 1 GM IVPB PREMIX 50 ML IV SCH (10:07)
[2020-06-15 10:19] LABS: ERYTHROCYTE SEDIMENTATION RATE 58 MM/HR (0-20)
[2020-06-15] MEDS: AZITHROMYCIN 500 MG in NS 250 ML IV SCH (10:44)
[2020-06-15 11:45] LABS: C-REACTIVE PROTEIN QUANT 24.9 mg/dL (0-0.5)
[2020-06-15 13:43] LABS: NEUTROPHILS % (AUTO) 91.8 % (40.0-70.0)
[2020-06-15] MEDS ORDERED: POTASSIUM CHLORIDE 40 MEQ in NS 250 ML IV ONE (14:15)
[2020-06-15] MEDS: D5/0.45 NS 1,000 ML IV SCH (14:15)
[2020-06-15 15:56] LABS: INR 1.2 (0.8-1.2); PROTHROMBIN TIME 12.7 SECS (9.5-12.5)
[2020-06-15] MEDS: lisinopriL 20 MG TABLET PO SCH (21:57)
[2020-06-16] VITALS (8 sets, daily range): BP systolic 135–157
[2020-06-16] MEDS: INSULIN REGULAR, HUMAN 100 UNITS/ML, 10 ML VIAL (humuLIN R) SUBCUT PRN ×4 (00:32→18:30)
[2020-06-16] MEDS: ALBUTEROL MDI INHALATION 8 GM INH INH SCH ×6 (03:29→23:10)
[2020-06-16 08:51] LABS: BASOPHILS # (AUTO) 0.1 K/uL (0.0-0.2); BASOPHILS % (AUTO) 0.2 % (0.0-2.0); EOSINOPHILS # (AUTO) 0.1 K/uL (0.0-0.4); EOSINOPHILS % (AUTO) 0.5 % (0.0-4.0); HEMATOCRIT 35.6 % (36-48); LYMPHOCYTES # (AUTO) 0.5 K/uL (1.0-5.5); LYMPHOCYTES % (AUTO) 2.3 % (20.5-51.5); MEAN CORPUSCULAR HEMOGLOBIN 30 pg (27-31); MEAN CORPUSCULAR HGB CONC 34 % (32-36); MEAN CORPUSCULAR VOLUME 88 fL (79.0-98.0); MONOCYTES # (AUTO) 0.8 K/uL (0.0-1.0); MONOCYTES % (AUTO) 3.5 % (1.7-9.3); NEUTROPHILS # (AUTO) 21.8 K/uL (1.8-7.7); NEUTROPHILS % (AUTO) 93.5 % (40.0-70.0); PLATELET COUNT (AUTO) 181 K/uL (130-430); RED BLOOD CELL COUNT(AUTO) 4.05 MIL/uL (4.2-6.2); RED CELL DISTRIBUTION WIDTH 13.2 % (9.0-15.0); WHITE BLOOD COUNT (AUTO) 23.3 K/uL (4.8-10.8)
[2020-06-16] MEDS: CREON 36000 UNIT PO SCH ×3 (09:00→17:00)
[2020-06-16 09:33] LABS: ANION GAP 12 (5-15); CALCIUM 8.4 mg/dL (8.4-11.0); CHLORIDE 98 mmol/L (98-107); CREATININE 0.75 mg/dL (0.55-1.30); GLUCOSE 226 mg/dL (70-99); POTASSIUM 3.2 mmol/L (3.5-5.1); SODIUM SERUM 136 mmol/L (136-145); UREA NITROGEN, BLOOD 20 mg/dL (8-21)
[2020-06-16] MEDS: cefTRIAXone 1 GM IVPB PREMIX 50 ML IV SCH (10:01)
[2020-06-16] MEDS: FAMOTIDINE 20 MG TABLET PO SCH (10:02)
[2020-06-16] MEDS: metFORMIN HCL 500 MG TABLET PO SCH ×2 (10:02→18:30)
[2020-06-16] MEDS: DEXAMETHASONE SOD PHOSPHATE 10 MG/ML VIAL IVP SCH (10:03)
[2020-06-16] MEDS: EYE OP SCH ×3 (10:04→21:00)
[2020-06-16] MEDS: TIMOLOL MALEATE 0.5% OPHTHALMIC DROPS 5 ML OP SCH ×2 (10:04→21:00)
[2020-06-16] MEDS: AZOPT 1% OP SCH ×3 (10:04→21:00)
[2020-06-16] MEDS: amLODIPine BESYLATE 10 MG TABLET PO SCH (10:05)
[2020-06-16] MEDS: HYDROCHLOROTHIAZIDE 12.5 MG CAPSULE (HCTZ) PO SCH (10:05)
[2020-06-16] MEDS: GABAPENTIN 100 MG CAPSULE PO SCH ×3 (10:08→21:00)
[2020-06-16] MEDS: INSULIN NPH/REGULAR 70-30, 100 UNITS/ML, 10 ML VIAL SUBCUT SCH (10:09)
[2020-06-16] MEDS: APIXABAN 2.5 MG TABLET PO SCH ×2 (10:10→21:00)
[2020-06-16] MEDS: D5/0.45 NS 1,000 ML IV SCH ×3 (10:15→20:15)
[2020-06-16 12:03] LABS: C-REACTIVE PROTEIN QUANT 28.1 mg/dL (0-0.5)
[2020-06-16] MEDS ORDERED: KCL 20 mEq in 100 mL (PREMIX) 100 ML IV ONE (14:15)
[2020-06-16] MEDS: NORMAL SALINE 5 ML DISP.SYRIN IVF SCH ×2 (14:41→22:00)
[2020-06-16 19:20] LABS: ERYTHROCYTE SEDIMENTATION RATE 10 MM/HR (0-20)
[2020-06-16] MEDS: lisinopriL 20 MG TABLET PO SCH (21:00)
[2020-06-17] VITALS: BP_SYST 135
[2020-06-17] MEDS: ALBUTEROL MDI INHALATION 8 GM INH INH SCH ×6 (03:05→23:59)
[2020-06-17] MEDS: NORMAL SALINE 5 ML DISP.SYRIN IVF SCH ×3 (05:56→22:00)
[2020-06-17] MEDS: D5/0.45 NS 1,000 ML IV SCH ×2 (05:56→16:15)
[2020-06-17 06:54] LABS: BASOPHILS % (AUTO) 0.1 % (0.0-2.0); EOSINOPHILS % (AUTO) 0.1 % (0.0-4.0); HEMATOCRIT 34.2 % (36-48); HEMOGLOBIN 11.4 g/dL (12.0-16.0); LYMPHOCYTES # (AUTO) 0.5 K/uL (1.0-5.5); LYMPHOCYTES % (AUTO) 2.1 % (20.5-51.5); MEAN CORPUSCULAR HEMOGLOBIN 30 pg (27-31); MEAN CORPUSCULAR HGB CONC 33 % (32-36); MEAN CORPUSCULAR VOLUME 88 fL (79.0-98.0); MONOCYTES # (AUTO) 0.9 K/uL (0.0-1.0); MONOCYTES % (AUTO) 3.5 % (1.7-9.3); NEUTROPHILS # (AUTO) 24.9 K/uL (1.8-7.7); PLATELET COUNT (AUTO) 122 K/uL (130-430); RED BLOOD CELL COUNT(AUTO) 3.87 MIL/uL (4.2-6.2); RED CELL DISTRIBUTION WIDTH 13.3 % (9.0-15.0); WHITE BLOOD COUNT (AUTO) 26.5 K/uL (4.8-10.8)
[2020-06-17 07:20] LABS: ALANINE AMINOTRANSFERASE 15 U/L (12-78); ANION GAP 11 (5-15); ASPARTATE AMINOTRANSFERASE 38 U/L (10-37); CALCIUM 8.2 mg/dL (8.4-11.0); CHLORIDE 97 mmol/L (98-107); CREATININE 0.68 mg/dL (0.55-1.30); GLUCOSE 294 mg/dL (70-99); POTASSIUM 3.7 mmol/L (3.5-5.1); SODIUM SERUM 134 mmol/L (136-145); TOTAL BILIRUBIN 1.1 mg/dL (0.0-1.0); UREA NITROGEN, BLOOD 18 mg/dL (8-21)
[2020-06-17] MEDS: INSULIN REGULAR, HUMAN 100 UNITS/ML, 10 ML VIAL (humuLIN R) SUBCUT PRN ×3 (07:49→18:54)
[2020-06-17] MEDS: INSULIN NPH/REGULAR 70-30, 100 UNITS/ML, 10 ML VIAL SUBCUT SCH (08:00)
[2020-06-17] MEDS: metFORMIN HCL 500 MG TABLET PO SCH ×2 (08:00→18:00)
[2020-06-17] MEDS: HYDROCHLOROTHIAZIDE 12.5 MG CAPSULE (HCTZ) PO SCH (09:00)
[2020-06-17] MEDS: APIXABAN 2.5 MG TABLET PO SCH ×2 (09:00→21:00)
[2020-06-17] MEDS ORDERED: ETOMIDATE 20 MG/ 10 ML VIAL (AMIDATE) IVP ONE (09:16)
[2020-06-17] MEDS: FAMOTIDINE 20 MG TABLET PO SCH (10:10)
[2020-06-17] MEDS: cefTRIAXone 1 GM IVPB PREMIX 50 ML IV SCH (10:10)
[2020-06-17] MEDS: CREON 36000 UNIT PO SCH ×3 (10:10→17:00)
[2020-06-17] MEDS: DEXAMETHASONE SOD PHOSPHATE 10 MG/ML VIAL IVP SCH (10:10)
[2020-06-17] MEDS: AZOPT 1% OP SCH ×3 (10:10→21:00)
[2020-06-17] MEDS: GABAPENTIN 100 MG CAPSULE PO SCH ×3 (10:10→21:00)
[2020-06-17] MEDS: amLODIPine BESYLATE 10 MG TABLET PO SCH (10:10)
[2020-06-17] MEDS: EYE OP SCH ×3 (10:10→21:00)
[2020-06-17] MEDS: TIMOLOL MALEATE 0.5% OPHTHALMIC DROPS 5 ML OP SCH ×2 (10:10→21:00)
[2020-06-17 12:22] LABS: C-REACTIVE PROTEIN QUANT 31.1 mg/dL (0-0.5)
[2020-06-17 14:30] LABS: NEUTROPHILS % (AUTO) 94.2 % (40.0-70.0)
[2020-06-17 14:44] VITALS: BP_SYST 135
[2020-06-17 16:00] VITALS: BP_SYST 141
[2020-06-17 20:00] VITALS: BP_SYST 116
[2020-06-17] MEDS ORDERED: DIGOXIN 0.5 MG/2 ML AMP IVP ONE (20:30)
[2020-06-17] MEDS: lisinopriL 20 MG TABLET PO SCH (21:00)
[2020-06-18] VITALS (23 sets, daily range): BP systolic 71–131
[2020-06-18 00:13] LABS: ERYTHROCYTE SEDIMENTATION RATE 75 MM/HR (0-20)
[2020-06-18] MEDS ORDERED: DIGOXIN 0.5 MG/2 ML AMP IVP ONE (01:00)
[2020-06-18] MEDS ORDERED: DIGOXIN 0.5 MG/2 ML AMP ONE (01:07)
[2020-06-18] MEDS: D5/0.45 NS 1,000 ML IV SCH ×2 (02:15→12:57)
[2020-06-18] MEDS: ALBUTEROL MDI INHALATION 8 GM INH INH SCH ×4 (03:17→15:45)
[2020-06-18] MEDS ORDERED: DILTIAZEM HCL 25 MG/5 ML VIAL IVP ONE (03:45)
[2020-06-18] MEDS ORDERED: DILTIAZEM HCL 125 MG/25 ML VIAL IV ONE (04:17)
[2020-06-18] MEDS ORDERED: DILTIAZEM HCL 25 MG/5 ML VIAL ONE (04:17)
[2020-06-18] MEDS ORDERED: PROPOFOL DRIP 100 ML IV ONE (05:58)
[2020-06-18] MEDS ORDERED: PROPOFOL DRIP 100 ML IV PRN (06:00)
[2020-06-18] MEDS: NORMAL SALINE 5 ML DISP.SYRIN IVF SCH ×3 (06:00→22:00)
[2020-06-18] MEDS: metFORMIN HCL 500 MG TABLET PO SCH ×2 (08:00→18:27)
[2020-06-18 08:48] LABS: HEMATOCRIT 36.2 % (36-48); MEAN CORPUSCULAR HEMOGLOBIN 29 pg (27-31); MEAN CORPUSCULAR HGB CONC 33 % (32-36); MEAN CORPUSCULAR VOLUME 89 fL (79.0-98.0); PLATELET COUNT (AUTO) 157 K/uL (130-430); RED BLOOD CELL COUNT(AUTO) 4.09 MIL/uL (4.2-6.2)
[2020-06-18 08:52] LABS: ANION GAP 14 (5-15); CALCIUM 8.5 mg/dL (8.4-11.0); CHLORIDE 100 mmol/L (98-107); CREATININE 0.85 mg/dL (0.55-1.30); GLUCOSE 288 mg/dL (70-99); POTASSIUM 3.8 mmol/L (3.5-5.1); SODIUM SERUM 137 mmol/L (136-145); UREA NITROGEN, BLOOD 23 mg/dL (8-21)
[2020-06-18] MEDS ORDERED: NALOXONE HCL 0.4 MG/ML AMP (NARCAN) IVP PRN (09:00)
[2020-06-18] MEDS: cefTRIAXone 1 GM IVPB PREMIX 50 ML IV SCH (09:00)
[2020-06-18] MEDS ORDERED: COMMUNICATION ORDER XX ONE (09:00)
[2020-06-18] MEDS: CREON 36000 UNIT PO SCH ×3 (09:00→17:00)
[2020-06-18] MEDS: EYE OP SCH ×3 (09:01→21:00)
[2020-06-18] MEDS: DEXAMETHASONE SOD PHOSPHATE 10 MG/ML VIAL IVP SCH (09:01)
[2020-06-18] MEDS: TIMOLOL MALEATE 0.5% OPHTHALMIC DROPS 5 ML OP SCH ×2 (09:01→21:00)
[2020-06-18] MEDS: AZOPT 1% OP SCH ×3 (09:01→21:00)
[2020-06-18 09:33] LABS: WHITE BLOOD COUNT (AUTO) 38.4 K/uL (4.8-10.8)
[2020-06-18] MEDS ORDERED: HYDROcodone/ACETAMIN 10-325 MG TAB GT PRN (09:49)
[2020-06-18] MEDS ORDERED: HYDROcodone/ACETAMIN 5-325 MG TAB (NORCO/ VICODIN) GT PRN (09:50)
[2020-06-18] MEDS ORDERED: CREON 36000 UNIT GT PRN (09:51)
[2020-06-18 10:48] LABS: C-REACTIVE PROTEIN QUANT 33.7 mg/dL (0-0.5)
[2020-06-18] MEDS ORDERED: MIDAZOLAM HCL IN 0.9 % NACL/PF 50 ML IV ONE (11:05)
[2020-06-18] MEDS: MORPHINE I.V. DRIP 100 ML IV PRN ×2 (11:45→23:25)
[2020-06-18] MEDS: MIDAZOLAM HCL IN 0.9 % NACL/PF 50 ML IV PRN (11:45)
[2020-06-18] MEDS: INSULIN NPH/REGULAR 70-30, 100 UNITS/ML, 10 ML VIAL SUBCUT SCH (11:57)
[2020-06-18] MEDS: INSULIN REGULAR, HUMAN 100 UNITS/ML, 10 ML VIAL (humuLIN R) SUBCUT PRN ×2 (11:58→18:29)
[2020-06-18 13:32] LABS: ERYTHROCYTE SEDIMENTATION RATE 33 MM/HR (0-20)
[2020-06-18 14:06] LABS: BAND % (MANUAL) 7 % (0-6); LYMPHOCYTES % (MANUAL) 2 % (20-46); MONOCYTES % (MANUAL) 4 % (0-11)
[2020-06-18 14:07] LABS: BASOPHILS % (MANUAL) 0 % (0-2); EOSINOPHILS % (MANUAL) 0 % (0-7)
[2020-06-18] MEDS: GABAPENTIN 100 MG CAPSULE GT SCH ×2 (15:00→23:25)
[2020-06-18] MEDS ORDERED: NOREPINEPHRINE 4 MG/4 ML VIAL IV ONE (16:09)
[2020-06-18] MEDS ORDERED: NOREPINEPHRINE BITARTRATE 4 MG in NS 246 ML IV PRN (16:15)
[2020-06-18] MEDS: NOREPINEPHRINE BITARTRATE 4 MG in NS 246 ML IV PRN (17:05)
[2020-06-18] MEDS: lisinopriL 20 MG TABLET GT SCH (21:00)
[2020-06-18] MEDS: ACETAMINOPHEN 650 MG/20.3 ML UDC GT PRN (23:23)
[2020-06-18] MEDS: APIXABAN 2.5 MG TABLET GT SCH (23:25)
[2020-06-19] VITALS (31 sets, daily range): BP systolic 62–142
[2020-06-19] MEDS ORDERED: NOREPINEPHRINE 4 MG/4 ML VIAL IV ONE ×2 (00:27→17:02)
[2020-06-19] MEDS: NOREPINEPHRINE BITARTRATE 4 MG in NS 246 ML IV PRN ×4 (00:54→17:30)
[2020-06-19] MEDS: AZOPT 1% OP SCH ×4 (00:56→22:52)
[2020-06-19] MEDS: EYE OP SCH ×4 (00:56→22:52)
[2020-06-19] MEDS: TIMOLOL MALEATE 0.5% OPHTHALMIC DROPS 5 ML OP SCH ×3 (00:56→22:53)
[2020-06-19] MEDS: D5/0.45 NS 1,000 ML IV SCH ×3 (01:30→18:20)
[2020-06-19] MEDS: INSULIN REGULAR, HUMAN 100 UNITS/ML, 10 ML VIAL (humuLIN R) SUBCUT PRN ×4 (01:35→18:26)
[2020-06-19] MEDS: NORMAL SALINE 5 ML DISP.SYRIN IVF SCH ×3 (06:00→22:00)
[2020-06-19] MEDS: ALBUTEROL MDI INHALATION 8 GM INH INH SCH ×5 (07:40→23:00)
[2020-06-19 08:46] LABS: ALBUMIN 1.6 g/dL (3.4-4.8); CHLORIDE 101 mmol/L (98-107); TOTAL BILIRUBIN 0.3 mg/dL (0.0-1.0)
[2020-06-19] MEDS: metFORMIN HCL 500 MG TABLET PO SCH ×2 (08:58→18:20)
[2020-06-19] MEDS: INSULIN NPH/REGULAR 70-30, 100 UNITS/ML, 10 ML VIAL SUBCUT SCH (08:58)
[2020-06-19] MEDS: APIXABAN 2.5 MG TABLET GT SCH ×2 (08:58→22:50)
[2020-06-19] MEDS: FAMOTIDINE 20 MG TABLET GT SCH (08:58)
[2020-06-19] MEDS: GABAPENTIN 100 MG CAPSULE GT SCH ×3 (08:58→21:00)
[2020-06-19] MEDS: cefTRIAXone 1 GM IVPB PREMIX 50 ML IV SCH (08:59)
[2020-06-19] MEDS: HYDROCHLOROTHIAZIDE 12.5 MG CAPSULE (HCTZ) GT SCH (08:59)
[2020-06-19] MEDS: amLODIPine BESYLATE 10 MG TABLET GT SCH (09:00)
[2020-06-19] MEDS: CREON 36000 UNIT PO SCH ×3 (09:00→16:15)
[2020-06-19] MEDS: DEXAMETHASONE SOD PHOSPHATE 10 MG/ML VIAL IVP SCH (09:02)
[2020-06-19 09:40] LABS: BASOPHILS # (AUTO) 0.3 K/uL (0.0-0.2); BASOPHILS % (AUTO) 0.7 % (0.0-2.0); HEMATOCRIT 35.5 % (36-48); HEMOGLOBIN 11.4 g/dL (12.0-16.0); LYMPHOCYTES # (AUTO) 0.7 K/uL (1.0-5.5); LYMPHOCYTES % (AUTO) 2.2 % (20.5-51.5); MEAN CORPUSCULAR HEMOGLOBIN 29 pg (27-31); MEAN CORPUSCULAR HGB CONC 32 % (32-36); MEAN CORPUSCULAR VOLUME 90 fL (79.0-98.0); MONOCYTES # (AUTO) 1.1 K/uL (0.0-1.0); MONOCYTES % (AUTO) 3.3 % (1.7-9.3); NEUTROPHILS % (AUTO) 93.8 % (40.0-70.0); PLATELET COUNT (AUTO) 238 K/uL (130-430); RED BLOOD CELL COUNT(AUTO) 3.93 MIL/uL (4.2-6.2); RED CELL DISTRIBUTION WIDTH 13.7 % (9.0-15.0)
[2020-06-19 09:48] LABS: ALANINE AMINOTRANSFERASE 29 U/L (12-78); ANION GAP 15 (5-15); ASPARTATE AMINOTRANSFERASE 68 U/L (10-37); CALCIUM 7.9 mg/dL (8.4-11.0); GLUCOSE 328 mg/dL (70-99); POTASSIUM 4.2 mmol/L (3.5-5.1); SODIUM SERUM 136 mmol/L (136-145); UREA NITROGEN, BLOOD 58 mg/dL (8-21)
[2020-06-19 09:51] LABS: CREATININE 2.61 mg/dL (0.55-1.30)
[2020-06-19 10:48] LABS: ERYTHROCYTE SEDIMENTATION RATE 32 MM/HR (0-20)
[2020-06-19 11:50] LABS: C-REACTIVE PROTEIN QUANT 17.3 mg/dL (0-0.5)
[2020-06-19 12:37] LABS: WHITE BLOOD COUNT (AUTO) 34.1 K/uL (4.8-10.8)
[2020-06-19] MEDS: PIPERACILLIN/TAZO 2.25G/DEX-IS 50 ML IV SCH (13:46)
[2020-06-19] MEDS ORDERED: MIDAZOLAM HCL IN 0.9 % NACL/PF 50 ML IV ONE (14:22)
[2020-06-19] MEDS: MIDAZOLAM HCL IN 0.9 % NACL/PF 50 ML IV PRN (14:30)
[2020-06-19] MEDS ORDERED: BUMEX 1 MG/4 ML VIAL IVP ONE (21:00)
[2020-06-19] MEDS: lisinopriL 20 MG TABLET GT SCH (21:00)
[2020-06-19] MEDS: ALBUMIN HUMAN 25% 100 ML IV SCH (22:49)
[2020-06-20] VITALS (32 sets, daily range): BP systolic 90–145
[2020-06-20] MEDS: PIPERACILLIN/TAZO 2.25G/DEX-IS 50 ML IV SCH ×3 (00:50→14:39)
[2020-06-20] MEDS: INSULIN REGULAR, HUMAN 100 UNITS/ML, 10 ML VIAL (humuLIN R) SUBCUT PRN ×4 (01:17→17:44)
[2020-06-20] MEDS: ACETAMINOPHEN 650 MG/20.3 ML UDC GT PRN ×2 (01:47→16:05)
[2020-06-20] MEDS: ALBUMIN HUMAN 25% 100 ML IV SCH (04:00)
[2020-06-20] MEDS ORDERED: DIGOXIN 0.5 MG/2 ML AMP IVP ONE ×2 (04:00)
[2020-06-20] MEDS ORDERED: NOREPINEPHRINE 4 MG/4 ML VIAL IV ONE ×3 (04:22→17:58)
[2020-06-20] MEDS: NOREPINEPHRINE BITARTRATE 4 MG in NS 246 ML IV PRN ×2 (04:32→18:00)
[2020-06-20] MEDS: ALBUTEROL MDI INHALATION 8 GM INH INH SCH ×6 (07:40→23:00)
[2020-06-20 07:43] LABS: BASOPHILS # (AUTO) 0.1 K/uL (0.0-0.2); BASOPHILS % (AUTO) 0.5 % (0.0-2.0); EOSINOPHILS % (AUTO) 0.1 % (0.0-4.0); HEMATOCRIT 28.8 % (36-48); HEMOGLOBIN 9.5 g/dL (12.0-16.0); LYMPHOCYTES # (AUTO) 0.9 K/uL (1.0-5.5); LYMPHOCYTES % (AUTO) 3.7 % (20.5-51.5); MEAN CORPUSCULAR HEMOGLOBIN 30 pg (27-31); MEAN CORPUSCULAR HGB CONC 33 % (32-36); MEAN CORPUSCULAR VOLUME 90 fL (79.0-98.0); MONOCYTES # (AUTO) 1.2 K/uL (0.0-1.0); MONOCYTES % (AUTO) 4.8 % (1.7-9.3); NEUTROPHILS # (AUTO) 23.4 K/uL (1.8-7.7); NEUTROPHILS % (AUTO) 90.9 % (40.0-70.0); PLATELET COUNT (AUTO) 184 K/uL (130-430); RED BLOOD CELL COUNT(AUTO) 3.22 MIL/uL (4.2-6.2); RED CELL DISTRIBUTION WIDTH 13.4 % (9.0-15.0); WHITE BLOOD COUNT (AUTO) 25.7 K/uL (4.8-10.8)
[2020-06-20 08:16] LABS: ANION GAP 16 (5-15); CALCIUM 7.9 mg/dL (8.4-11.0); CHLORIDE 100 mmol/L (98-107); CREATININE 3.43 mg/dL (0.55-1.30); GLUCOSE 252 mg/dL (70-99); PHOSPHORUS 6.1 mg/dL (2.7-4.5); POTASSIUM 4.5 mmol/L (3.5-5.1); SODIUM SERUM 135 mmol/L (136-145); UREA NITROGEN, BLOOD 77 mg/dL (8-21)
[2020-06-20 08:30] LABS: ERYTHROCYTE SEDIMENTATION RATE 48 MM/HR (0-20)
[2020-06-20] MEDS: DEXAMETHASONE SOD PHOSPHATE 10 MG/ML VIAL IVP SCH (08:34)
[2020-06-20] MEDS: cefTRIAXone 1 GM IVPB PREMIX 50 ML IV SCH (08:35)
[2020-06-20] MEDS: APIXABAN 2.5 MG TABLET GT SCH (08:40)
[2020-06-20] MEDS: metFORMIN HCL 500 MG TABLET PO SCH ×2 (08:41→17:46)
[2020-06-20] MEDS: FAMOTIDINE 20 MG TABLET GT SCH (08:42)
[2020-06-20 08:46] LABS: C-REACTIVE PROTEIN QUANT 5.9 mg/dL (0-0.5)
[2020-06-20] MEDS: TIMOLOL MALEATE 0.5% OPHTHALMIC DROPS 5 ML OP SCH (08:52)
[2020-06-20] MEDS: EYE OP SCH ×2 (08:54→15:46)
[2020-06-20] MEDS: AZOPT 1% OP SCH ×2 (08:54→15:46)
[2020-06-20] MEDS: INSULIN NPH/REGULAR 70-30, 100 UNITS/ML, 10 ML VIAL SUBCUT SCH (08:57)
[2020-06-20] MEDS: HYDROCHLOROTHIAZIDE 12.5 MG CAPSULE (HCTZ) GT SCH (09:00)
[2020-06-20] MEDS: amLODIPine BESYLATE 10 MG TABLET GT SCH (09:00)
[2020-06-20] MEDS: CREON 36000 UNIT PO SCH ×3 (09:09→17:46)
[2020-06-20] MEDS ORDERED: NS 250 ML IV ONE (09:30)
[2020-06-20] MEDS: GABAPENTIN 100 MG CAPSULE GT SCH ×2 (09:50→14:43)
[2020-06-20] MEDS: NORMAL SALINE 5 ML DISP.SYRIN IVF SCH ×2 (14:00→22:00)
[2020-06-20] MEDS: MORPHINE I.V. DRIP 100 ML IV PRN (14:40)
[2020-06-20] MEDS: D5/0.45 NS 1,000 ML IV SCH (14:41)
[2020-06-20 14:43] LABS: INR 1.1 (0.8-1.2); PROTHROMBIN TIME 11.7 SECS (9.5-12.5)
[2020-06-20] MEDS ORDERED: HEPARIN SODIUM,PORCINE 5,000 UNITS/ML VIAL ONE ×2 (16:25→17:26)
[2020-06-20 17:28] LABS: BILIRUBIN,URINE NEGATIVE (NEGATIVE); BLOOD, URINE 3+ (NEGATIVE); CLARITY/URINE SL CLOUDY (CLEAR); COLOR,URINE YELLOW (YELLOW); GLUCOSE,URINE NEGATIVE (NEGATIVE); KETONES,URINE NEGATIVE (NEGATIVE); LEUKOCYTE ESTERASE ,URINE TRACE (NEGATIVE); NITRITE, URINE NEGATIVE (NEGATIVE); PH,URINE 5.5 (5.0-8.0); PROTEIN URINE TRACE (NEGATIVE); UROBILINOGEN,URINE 0.2 (0.2-1.0)
[2020-06-20 17:39] LABS: BACTERIA,URINE None Seen /HPF (None Seen); WBC,URINE NONE SEEN /HPF (0-3)
[2020-06-20 17:40] LABS: TRICHOMONAS,URINE None Seen /HPF (None Seen); YEAST,URINE Moderate /HPF (None Seen)
[2020-06-20] MEDS ORDERED: MIDAZOLAM HCL IN 0.9 % NACL/PF 50 ML IV ONE (18:48)
[2020-06-20] MEDS: MIDAZOLAM HCL IN 0.9 % NACL/PF 50 ML IV PRN (18:52)
[2020-06-20] MEDS ORDERED: MENTHOL/ZINC OXIDE 113 GM OINT. TP PRN (20:45)
[2020-06-20] MEDS: lisinopriL 20 MG TABLET GT SCH (21:00)
[2020-06-21] VITALS (31 sets, daily range): BP systolic 45–138
[2020-06-21] MEDS: AZOPT 1% OP SCH ×4 (00:14→20:59)
[2020-06-21] MEDS: EYE OP SCH ×4 (00:14→20:59)
[2020-06-21] MEDS: TIMOLOL MALEATE 0.5% OPHTHALMIC DROPS 5 ML OP SCH ×3 (00:14→20:59)
[2020-06-21] MEDS: APIXABAN 2.5 MG TABLET GT SCH ×3 (00:31→20:57)
[2020-06-21] MEDS: LINEZOLID 300 ML IV SCH ×3 (00:32→20:58)
[2020-06-21] MEDS: GABAPENTIN 100 MG CAPSULE GT SCH ×4 (00:32→20:58)
[2020-06-21] MEDS: PIPERACILLIN/TAZO 2.25G/DEX-IS 50 ML IV SCH ×4 (00:33→20:59)
[2020-06-21] MEDS: INSULIN REGULAR, HUMAN 100 UNITS/ML, 10 ML VIAL (humuLIN R) SUBCUT PRN ×5 (01:03→23:42)
[2020-06-21] MEDS: NOREPINEPHRINE BITARTRATE 4 MG in NS 246 ML IV PRN ×3 (01:05→23:46)
[2020-06-21] MEDS: D5/0.45 NS 1,000 ML IV SCH ×3 (02:38→20:59)
[2020-06-21] MEDS: ALBUTEROL MDI INHALATION 8 GM INH INH SCH ×6 (03:00→23:00)
[2020-06-21] MEDS: NORMAL SALINE 5 ML DISP.SYRIN IVF SCH ×3 (06:00→20:59)
[2020-06-21] MEDS ORDERED: NOREPINEPHRINE 4 MG/4 ML VIAL IV ONE (06:57)
[2020-06-21 07:24] LABS: BASOPHILS # (AUTO) 0.1 K/uL (0.0-0.2); BASOPHILS % (AUTO) 0.3 % (0.0-2.0); HEMATOCRIT 30.3 % (36-48); HEMOGLOBIN 9.9 g/dL (12.0-16.0); LYMPHOCYTES # (AUTO) 0.8 K/uL (1.0-5.5); LYMPHOCYTES % (AUTO) 2.7 % (20.5-51.5); MEAN CORPUSCULAR HEMOGLOBIN 29 pg (27-31); MEAN CORPUSCULAR HGB CONC 33 % (32-36); MEAN CORPUSCULAR VOLUME 90 fL (79.0-98.0); MONOCYTES # (AUTO) 1.3 K/uL (0.0-1.0); MONOCYTES % (AUTO) 4.5 % (1.7-9.3); NEUTROPHILS # (AUTO) 26.7 K/uL (1.8-7.7); NEUTROPHILS % (AUTO) 92.5 % (40.0-70.0); PLATELET COUNT (AUTO) 221 K/uL (130-430); RED BLOOD CELL COUNT(AUTO) 3.38 MIL/uL (4.2-6.2); RED CELL DISTRIBUTION WIDTH 13.5 % (9.0-15.0); WHITE BLOOD COUNT (AUTO) 28.8 K/uL (4.8-10.8)
[2020-06-21 07:46] LABS: ALANINE AMINOTRANSFERASE 30 U/L (12-78); ALBUMIN 2.2 g/dL (3.4-4.8); ANION GAP 17 (5-15); ASPARTATE AMINOTRANSFERASE 41 U/L (10-37); CALCIUM 7.7 mg/dL (8.4-11.0); CHLORIDE 99 mmol/L (98-107); CREATININE 3.79 mg/dL (0.55-1.30); GLUCOSE 288 mg/dL (70-99); PHOSPHORUS 6.8 mg/dL (2.7-4.5); POTASSIUM 4.3 mmol/L (3.5-5.1); SODIUM SERUM 132 mmol/L (136-145); TOTAL BILIRUBIN 0.4 mg/dL (0.0-1.0); UREA NITROGEN, BLOOD 87 mg/dL (8-21)
[2020-06-21 08:16] LABS: C-REACTIVE PROTEIN QUANT 3.7 mg/dL (0-0.5)
[2020-06-21] MEDS: CREON 36000 UNIT PO SCH ×3 (09:00→17:00)
[2020-06-21] MEDS: metFORMIN HCL 500 MG TABLET PO SCH ×2 (09:26→18:26)
[2020-06-21] MEDS: INSULIN NPH/REGULAR 70-30, 100 UNITS/ML, 10 ML VIAL SUBCUT SCH (09:28)
[2020-06-21] MEDS: HYDROCHLOROTHIAZIDE 12.5 MG CAPSULE (HCTZ) GT SCH (09:29)
[2020-06-21] MEDS: FAMOTIDINE 20 MG TABLET GT SCH (09:30)
[2020-06-21] MEDS: amLODIPine BESYLATE 10 MG TABLET GT SCH (09:30)
[2020-06-21] MEDS: DEXAMETHASONE SOD PHOSPHATE 10 MG/ML VIAL IVP SCH (09:31)
[2020-06-21 09:45] LABS: ERYTHROCYTE SEDIMENTATION RATE 36 MM/HR (0-20)
[2020-06-21] MEDS ORDERED: ALBUMIN HUMAN 25% 100 ML IV ONE (10:45)
[2020-06-21] MEDS: MORPHINE I.V. DRIP 100 ML IV PRN (12:03)
[2020-06-21] MEDS ORDERED: HEPARIN SODIUM,PORCINE 5,000 UNITS/ML VIAL ONE (14:50)
[2020-06-21] MEDS: lisinopriL 20 MG TABLET GT SCH (20:58)
[2020-06-22] VITALS (30 sets, daily range): BP systolic 95–150
[2020-06-22] MEDS: ALBUTEROL MDI INHALATION 8 GM INH INH SCH ×4 (03:00→16:41)
[2020-06-22] MEDS: PIPERACILLIN/TAZO 2.25G/DEX-IS 50 ML IV SCH ×3 (05:22→21:11)
[2020-06-22] MEDS: NORMAL SALINE 5 ML DISP.SYRIN IVF SCH ×3 (05:22→21:11)
[2020-06-22] MEDS: INSULIN REGULAR, HUMAN 100 UNITS/ML, 10 ML VIAL (humuLIN R) SUBCUT PRN ×2 (05:39→12:46)
[2020-06-22 06:39] LABS: BASOPHILS # (AUTO) 0.1 K/uL (0.0-0.2); BASOPHILS % (AUTO) 0.3 % (0.0-2.0); EOSINOPHILS % (AUTO) 0.1 % (0.0-4.0); HEMATOCRIT 26.9 % (36-48); LYMPHOCYTES # (AUTO) 0.8 K/uL (1.0-5.5); MEAN CORPUSCULAR HEMOGLOBIN 30 pg (27-31); MEAN CORPUSCULAR HGB CONC 34 % (32-36); MEAN CORPUSCULAR VOLUME 88 fL (79.0-98.0); MONOCYTES # (AUTO) 0.9 K/uL (0.0-1.0); MONOCYTES % (AUTO) 3.4 % (1.7-9.3); NEUTROPHILS # (AUTO) 23.8 K/uL (1.8-7.7); PLATELET COUNT (AUTO) 231 K/uL (130-430); RED BLOOD CELL COUNT(AUTO) 3.06 MIL/uL (4.2-6.2); RED CELL DISTRIBUTION WIDTH 13.4 % (9.0-15.0); WHITE BLOOD COUNT (AUTO) 25.6 K/uL (4.8-10.8)
[2020-06-22 07:02] LABS: ANION GAP 14 (5-15); CALCIUM 7.6 mg/dL (8.4-11.0); CHLORIDE 98 mmol/L (98-107); CREATININE 2.72 mg/dL (0.55-1.30); GLUCOSE 213 mg/dL (70-99); POTASSIUM 3.6 mmol/L (3.5-5.1); SODIUM SERUM 134 mmol/L (136-145); UREA NITROGEN, BLOOD 55 mg/dL (8-21)
[2020-06-22 07:25] LABS: C-REACTIVE PROTEIN QUANT 3.4 mg/dL (0-0.5)
[2020-06-22] MEDS: CREON 36000 UNIT PO SCH ×3 (09:00→17:00)
[2020-06-22] MEDS: EYE OP SCH ×3 (09:39→21:11)
[2020-06-22] MEDS: AZOPT 1% OP SCH ×3 (09:39→21:11)
[2020-06-22] MEDS: TIMOLOL MALEATE 0.5% OPHTHALMIC DROPS 5 ML OP SCH ×2 (09:39→21:11)
[2020-06-22] MEDS: D5/0.45 NS 1,000 ML IV SCH ×3 (09:49→21:35)
[2020-06-22] MEDS: metFORMIN HCL 500 MG TABLET PO SCH ×2 (09:50→18:53)
[2020-06-22] MEDS: GABAPENTIN 100 MG CAPSULE GT SCH ×3 (09:50→21:11)
[2020-06-22] MEDS: HYDROCHLOROTHIAZIDE 12.5 MG CAPSULE (HCTZ) GT SCH (09:51)
[2020-06-22] MEDS: LINEZOLID 300 ML IV SCH ×2 (09:52→21:11)
[2020-06-22] MEDS: DEXAMETHASONE SOD PHOSPHATE 10 MG/ML VIAL IVP SCH (09:52)
[2020-06-22] MEDS: FAMOTIDINE 20 MG TABLET GT SCH (09:52)
[2020-06-22] MEDS: amLODIPine BESYLATE 10 MG TABLET GT SCH (09:53)
[2020-06-22] MEDS: APIXABAN 2.5 MG TABLET GT SCH ×2 (09:53→21:12)
[2020-06-22] MEDS: INSULIN NPH/REGULAR 70-30, 100 UNITS/ML, 10 ML VIAL SUBCUT SCH (09:58)
[2020-06-22] MEDS: MORPHINE I.V. DRIP 100 ML IV PRN (10:03)
[2020-06-22 10:43] LABS: ERYTHROCYTE SEDIMENTATION RATE 38 MM/HR (0-20)
[2020-06-22] MEDS ORDERED: HEPARIN SODIUM,PORCINE 5,000 UNITS/ML VIAL IVP ONE ×2 (13:15→14:45)
[2020-06-22 13:43] LABS: NEUTROPHILS % (AUTO) 93.2 % (40.0-70.0)
[2020-06-22] MEDS ORDERED: AMIODARONE HCL 150 MG/3ML VIAL IVP ONE (14:00)
[2020-06-22] MEDS ORDERED: AMIODARONE HCL 450 MG in D5W 241 ML IV SCH (15:00)
[2020-06-22] MEDS ORDERED: METOCLOPRAMIDE HCL 10 MG/2 ML VIAL ONE ×2 (17:29→23:34)
[2020-06-22] MEDS: METOCLOPRAMIDE HCL 10 MG/2 ML VIAL IVP SCH ×2 (18:53→23:38)
[2020-06-22] MEDS: lisinopriL 20 MG TABLET GT SCH (21:00)
[2020-06-23] VITALS (32 sets, daily range): BP systolic 81–133
[2020-06-23] MEDS ORDERED: MIDAZOLAM HCL IN 0.9 % NACL/PF 50 ML IV ONE ×2 (00:13→17:45)
[2020-06-23] MEDS: INSULIN REGULAR, HUMAN 100 UNITS/ML, 10 ML VIAL (humuLIN R) SUBCUT PRN ×4 (00:36→17:35)
[2020-06-23] MEDS: MIDAZOLAM HCL IN 0.9 % NACL/PF 50 ML IV PRN ×2 (00:36→17:46)
[2020-06-23] MEDS ORDERED: ALBUMIN HUMAN 25% 100 ML IV ONE ×2 (01:45→02:02)
[2020-06-23] MEDS ORDERED: METOCLOPRAMIDE HCL 10 MG/2 ML VIAL ONE ×3 (04:57→17:38)
[2020-06-23] MEDS: NORMAL SALINE 5 ML DISP.SYRIN IVF SCH ×3 (05:09→20:58)
[2020-06-23] MEDS: PIPERACILLIN/TAZO 2.25G/DEX-IS 50 ML IV SCH ×3 (05:09→20:57)
[2020-06-23] MEDS: METOCLOPRAMIDE HCL 10 MG/2 ML VIAL IVP SCH ×3 (05:09→17:38)
[2020-06-23 07:48] LABS: ANION GAP 14 (5-15); CALCIUM 7.8 mg/dL (8.4-11.0); CHLORIDE 97 mmol/L (98-107); CREATININE 2.62 mg/dL (0.55-1.30); GLUCOSE 215 mg/dL (70-99); POTASSIUM 3.6 mmol/L (3.5-5.1); SODIUM SERUM 133 mmol/L (136-145); UREA NITROGEN, BLOOD 46 mg/dL (8-21)
[2020-06-23] MEDS: ASCORBIC ACID 500 MG TABLET PO SCH ×2 (08:55→21:01)
[2020-06-23] MEDS: FAMOTIDINE 20 MG TABLET GT SCH (08:55)
[2020-06-23] MEDS: HYDROCHLOROTHIAZIDE 12.5 MG CAPSULE (HCTZ) GT SCH (08:56)
[2020-06-23] MEDS: DEXAMETHASONE SOD PHOSPHATE 10 MG/ML VIAL IVP SCH (08:57)
[2020-06-23] MEDS: amLODIPine BESYLATE 10 MG TABLET GT SCH (08:58)
[2020-06-23] MEDS: APIXABAN 2.5 MG TABLET GT SCH ×2 (08:58→21:00)
[2020-06-23] MEDS: GABAPENTIN 100 MG CAPSULE GT SCH ×3 (08:58→20:58)
[2020-06-23] MEDS: INSULIN NPH/REGULAR 70-30, 100 UNITS/ML, 10 ML VIAL SUBCUT SCH (09:00)
[2020-06-23] MEDS: CREON 36000 UNIT PO SCH ×3 (09:00→16:39)
[2020-06-23] MEDS: EYE OP SCH ×3 (09:02→21:06)
[2020-06-23] MEDS: LINEZOLID 300 ML IV SCH ×2 (09:02→20:57)
[2020-06-23] MEDS: AZOPT 1% OP SCH ×3 (09:02→21:06)
[2020-06-23] MEDS: TIMOLOL MALEATE 0.5% OPHTHALMIC DROPS 5 ML OP SCH ×2 (09:03→21:07)
[2020-06-23] MEDS: metFORMIN HCL 500 MG TABLET PO SCH ×2 (09:04→17:38)
[2020-06-23] MEDS: ALBUTEROL MDI INHALATION 8 GM INH INH SCH ×4 (10:11→19:00)
[2020-06-23] MEDS: NOREPINEPHRINE BITARTRATE 4 MG in NS 246 ML IV PRN (10:41)
[2020-06-23] MEDS: CHOLECALCIFEROL (VITAMIN D3) 5,000 UNIT TABLET PO SCH (11:42)
[2020-06-23] MEDS: D5/0.45 NS 1,000 ML IV SCH ×2 (11:51→21:06)
[2020-06-23] MEDS: MORPHINE I.V. DRIP 100 ML IV PRN (11:53)
[2020-06-23] MEDS: lisinopriL 20 MG TABLET GT SCH (20:59)
[2020-06-24] VITALS (30 sets, daily range): BP systolic 84–136
[2020-06-24] MEDS: ALBUTEROL MDI INHALATION 8 GM INH INH SCH ×7 (00:05→23:32)
[2020-06-24] MEDS: METOCLOPRAMIDE HCL 10 MG/2 ML VIAL IVP SCH ×4 (00:23→17:59)
[2020-06-24] MEDS: INSULIN REGULAR, HUMAN 100 UNITS/ML, 10 ML VIAL (humuLIN R) SUBCUT PRN ×4 (00:33→18:05)
[2020-06-24] MEDS: PIPERACILLIN/TAZO 2.25G/DEX-IS 50 ML IV SCH ×3 (05:47→21:11)
[2020-06-24] MEDS: NORMAL SALINE 5 ML DISP.SYRIN IVF SCH ×3 (05:49→21:15)
[2020-06-24 07:45] LABS: HEMATOCRIT 26.1 % (36-48); HEMOGLOBIN 8.7 g/dL (12.0-16.0); MEAN CORPUSCULAR HEMOGLOBIN 30 pg (27-31); MEAN CORPUSCULAR HGB CONC 33 % (32-36); MEAN CORPUSCULAR VOLUME 90 fL (79.0-98.0); PLATELET COUNT (AUTO) 351 K/uL (130-430); RED BLOOD CELL COUNT(AUTO) 2.91 MIL/uL (4.2-6.2); RED CELL DISTRIBUTION WIDTH 13.5 % (9.0-15.0)
[2020-06-24 07:56] LABS: ALANINE AMINOTRANSFERASE 25 U/L (12-78); ALBUMIN 2.3 g/dL (3.4-4.8); ANION GAP 18 (5-15); ASPARTATE AMINOTRANSFERASE 29 U/L (10-37); CHLORIDE 92 mmol/L (98-107); CREATININE 3.29 mg/dL (0.55-1.30); GLUCOSE 175 mg/dL (70-99); PHOSPHORUS 6.4 mg/dL (2.7-4.5); POTASSIUM 3.4 mmol/L (3.5-5.1); SODIUM SERUM 129 mmol/L (136-145); TOTAL BILIRUBIN 0.4 mg/dL (0.0-1.0); UREA NITROGEN, BLOOD 58 mg/dL (8-21)
[2020-06-24 08:10] LABS: C-REACTIVE PROTEIN QUANT 8.1 mg/dL (0-0.5)
[2020-06-24] MEDS: GABAPENTIN 100 MG CAPSULE GT SCH ×3 (08:39→21:11)
[2020-06-24] MEDS: metFORMIN HCL 500 MG TABLET PO SCH ×2 (08:39→17:59)
[2020-06-24] MEDS: ASCORBIC ACID 500 MG TABLET PO SCH ×2 (08:39→21:10)
[2020-06-24] MEDS: DEXAMETHASONE SOD PHOSPHATE 10 MG/ML VIAL IVP SCH (08:39)
[2020-06-24] MEDS: FAMOTIDINE 20 MG TABLET GT SCH (08:40)
[2020-06-24] MEDS: EYE OP SCH ×3 (08:40→21:13)
[2020-06-24] MEDS: AZOPT 1% OP SCH ×3 (08:40→21:13)
[2020-06-24] MEDS: CREON 36000 UNIT PO SCH ×3 (08:41→16:16)
[2020-06-24] MEDS: TIMOLOL MALEATE 0.5% OPHTHALMIC DROPS 5 ML OP SCH ×2 (08:41→21:14)
[2020-06-24] MEDS: APIXABAN 2.5 MG TABLET GT SCH ×2 (08:42→21:10)
[2020-06-24] MEDS: amLODIPine BESYLATE 10 MG TABLET GT SCH (08:46)
[2020-06-24] MEDS: CHOLECALCIFEROL (VITAMIN D3) 5,000 UNIT TABLET PO SCH (08:46)
[2020-06-24] MEDS: HYDROCHLOROTHIAZIDE 12.5 MG CAPSULE (HCTZ) GT SCH (08:46)
[2020-06-24] MEDS: LINEZOLID 300 ML IV SCH ×2 (08:48→21:11)
[2020-06-24] MEDS: INSULIN NPH/REGULAR 70-30, 100 UNITS/ML, 10 ML VIAL SUBCUT SCH (08:49)
[2020-06-24] MEDS: D5/0.45 NS 1,000 ML IV SCH ×3 (08:51→19:52)
[2020-06-24 09:05] LABS: WHITE BLOOD COUNT (AUTO) 32.1 K/uL (4.8-10.8)
[2020-06-24] MEDS ORDERED: MIDAZOLAM HCL IN 0.9 % NACL/PF 50 ML IV ONE ×2 (09:25→21:32)
[2020-06-24] MEDS: MIDAZOLAM HCL IN 0.9 % NACL/PF 50 ML IV PRN ×2 (09:34→21:34)
[2020-06-24 10:20] LABS: URINE SODIUM, RANDOM 78 mmol/L (40-220)
[2020-06-24 11:08] LABS: ERYTHROCYTE SEDIMENTATION RATE 34 MM/HR (0-20)
[2020-06-24] MEDS ORDERED: METOCLOPRAMIDE HCL 10 MG/2 ML VIAL ONE ×2 (11:33→17:58)
[2020-06-24 12:16] LABS: BAND % (MANUAL) 10 % (0-6)
[2020-06-24 12:17] LABS: BASOPHILS % (MANUAL) 0 % (0-2); EOSINOPHILS % (MANUAL) 0 % (0-7); LYMPHOCYTES % (MANUAL) 5 % (20-46); MONOCYTES % (MANUAL) 6 % (0-11)
[2020-06-24] MEDS: NOREPINEPHRINE BITARTRATE 4 MG in D5W 246 ML IV PRN ×2 (13:26→19:55)
[2020-06-24] MEDS ORDERED: HEPARIN SODIUM,PORCINE 5,000 UNITS/ML VIAL MC ONE ×2 (20:55→20:56)
[2020-06-24] MEDS: lisinopriL 20 MG TABLET GT SCH (21:00)
[2020-06-24] MEDS: MORPHINE I.V. DRIP 100 ML IV PRN (21:29)
[2020-06-25] VITALS (29 sets, daily range): BP systolic 95–130
[2020-06-25] MEDS: INSULIN REGULAR, HUMAN 100 UNITS/ML, 10 ML VIAL (humuLIN R) SUBCUT PRN ×2 (00:30→18:34)
[2020-06-25] MEDS: NORMAL SALINE 5 ML DISP.SYRIN IVF SCH ×3 (05:45→20:42)
[2020-06-25] MEDS: PIPERACILLIN/TAZO 2.25G/DEX-IS 50 ML IV SCH ×3 (05:45→20:26)
[2020-06-25] MEDS: METOCLOPRAMIDE HCL 10 MG/2 ML VIAL IVP SCH ×4 (05:46→18:32)
[2020-06-25 06:55] LABS: ANION GAP 14 (5-15); CALCIUM 7.8 mg/dL (8.4-11.0); CHLORIDE 93 mmol/L (98-107); CREATININE 2.88 mg/dL (0.55-1.30); GLUCOSE 142 mg/dL (70-99); PHOSPHORUS 5.6 mg/dL (2.7-4.5); POTASSIUM 3.4 mmol/L (3.5-5.1); SODIUM SERUM 127 mmol/L (136-145); UREA NITROGEN, BLOOD 45 mg/dL (8-21)
[2020-06-25] MEDS: ALBUTEROL MDI INHALATION 8 GM INH INH SCH ×5 (07:00→23:20)
[2020-06-25 07:39] LABS: HEMOGLOBIN 8.2 g/dL (12.0-16.0); MEAN CORPUSCULAR HEMOGLOBIN 29 pg (27-31); MEAN CORPUSCULAR HGB CONC 33 % (32-36); MEAN CORPUSCULAR VOLUME 90 fL (79.0-98.0); PLATELET COUNT (AUTO) 318 K/uL (130-430); RED BLOOD CELL COUNT(AUTO) 2.79 MIL/uL (4.2-6.2); RED CELL DISTRIBUTION WIDTH 13.8 % (9.0-15.0)
[2020-06-25] MEDS: INSULIN NPH/REGULAR 70-30, 100 UNITS/ML, 10 ML VIAL SUBCUT SCH (08:00)
[2020-06-25 08:26] LABS: WHITE BLOOD COUNT (AUTO) 39.2 K/uL (4.8-10.8)
[2020-06-25] MEDS: metFORMIN HCL 500 MG TABLET PO SCH ×2 (08:58→18:32)
[2020-06-25] MEDS: HYDROCHLOROTHIAZIDE 12.5 MG CAPSULE (HCTZ) GT SCH (09:00)
[2020-06-25] MEDS: CREON 36000 UNIT PO SCH ×3 (09:00→17:00)
[2020-06-25] MEDS: amLODIPine BESYLATE 10 MG TABLET GT SCH (09:00)
[2020-06-25] MEDS: APIXABAN 2.5 MG TABLET GT SCH ×2 (09:03→20:25)
[2020-06-25] MEDS: GABAPENTIN 100 MG CAPSULE GT SCH ×3 (09:09→20:26)
[2020-06-25] MEDS: ASCORBIC ACID 500 MG TABLET PO SCH ×2 (09:09→20:25)
[2020-06-25] MEDS: DEXAMETHASONE SOD PHOSPHATE 10 MG/ML VIAL IVP SCH (09:09)
[2020-06-25] MEDS: CHOLECALCIFEROL (VITAMIN D3) 5,000 UNIT TABLET PO SCH (09:09)
[2020-06-25] MEDS: FAMOTIDINE 20 MG TABLET GT SCH (09:09)
[2020-06-25] MEDS: EYE OP SCH ×3 (09:11→20:27)
[2020-06-25] MEDS: TIMOLOL MALEATE 0.5% OPHTHALMIC DROPS 5 ML OP SCH ×2 (09:11→20:27)
[2020-06-25] MEDS: AZOPT 1% OP SCH ×3 (09:11→20:27)
[2020-06-25] MEDS: LINEZOLID 300 ML IV SCH ×2 (09:12→20:26)
[2020-06-25 10:29] LABS: C-REACTIVE PROTEIN QUANT 12.8 mg/dL (0-0.5)
[2020-06-25] MEDS: MIDAZOLAM HCL IN 0.9 % NACL/PF 50 ML IV PRN (10:31)
[2020-06-25 10:45] LABS: ERYTHROCYTE SEDIMENTATION RATE 60 MM/HR (0-20)
[2020-06-25] MEDS ORDERED: MIDAZOLAM HCL IN 0.9 % NACL/PF 50 ML IV ONE ×2 (10:52→20:55)
[2020-06-25] MEDS ORDERED: POTASSIUM CHLORIDE 20 MEQ/PKT PACKET PO ONE (12:45)
[2020-06-25 12:49] LABS: ATYPICAL LYMPHOCYTES % 0 % (0-0); BAND % (MANUAL) 10 % (0-6); BASOPHILS % (MANUAL) 0 % (0-2); EOSINOPHILS % (MANUAL) 0 % (0-7); LYMPHOCYTES % (MANUAL) 3 % (20-46); MONOCYTES % (MANUAL) 2 % (0-11)
[2020-06-25] MEDS ORDERED: METOCLOPRAMIDE HCL 10 MG/2 ML VIAL ONE (12:55)
[2020-06-25] MEDS: D5/0.45 NS 1,000 ML IV SCH (13:51)
[2020-06-25] MEDS: lisinopriL 20 MG TABLET GT SCH (20:26)
[2020-06-25] MEDS: MORPHINE I.V. DRIP 100 ML IV PRN (21:01)
[2020-06-25] MEDS: NOREPINEPHRINE BITARTRATE 4 MG in D5W 246 ML IV PRN (21:02)
[2020-06-26] VITALS (29 sets, daily range): BP systolic 93–147
[2020-06-26] MEDS: D5/0.45 NS 1,000 ML IV SCH ×3 (00:36→20:59)
[2020-06-26] MEDS: INSULIN REGULAR, HUMAN 100 UNITS/ML, 10 ML VIAL (humuLIN R) SUBCUT PRN ×4 (00:37→18:31)
[2020-06-26] MEDS: ALBUTEROL MDI INHALATION 8 GM INH INH SCH ×5 (02:24→19:05)
[2020-06-26] MEDS: METOCLOPRAMIDE HCL 10 MG/2 ML VIAL IVP SCH ×4 (05:59→18:00)
[2020-06-26] MEDS: NORMAL SALINE 5 ML DISP.SYRIN IVF SCH ×3 (05:59→21:08)
[2020-06-26 07:06] LABS: HEMATOCRIT 27.2 % (36-48); HEMOGLOBIN 8.7 g/dL (12.0-16.0); MEAN CORPUSCULAR HEMOGLOBIN 29 pg (27-31); MEAN CORPUSCULAR HGB CONC 32 % (32-36); MEAN CORPUSCULAR VOLUME 91 fL (79.0-98.0); PLATELET COUNT (AUTO) 339 K/uL (130-430); RED BLOOD CELL COUNT(AUTO) 2.99 MIL/uL (4.2-6.2); RED CELL DISTRIBUTION WIDTH 13.5 % (9.0-15.0)
[2020-06-26] MEDS ORDERED: MIDAZOLAM HCL IN 0.9 % NACL/PF 50 ML IV ONE ×2 (07:35→18:52)
[2020-06-26] MEDS: metFORMIN HCL 500 MG TABLET PO SCH ×2 (07:37→18:13)
[2020-06-26] MEDS: MIDAZOLAM HCL IN 0.9 % NACL/PF 50 ML IV PRN ×2 (07:37→18:53)
[2020-06-26] MEDS: INSULIN NPH/REGULAR 70-30, 100 UNITS/ML, 10 ML VIAL SUBCUT SCH (07:39)
[2020-06-26 08:24] LABS: ALANINE AMINOTRANSFERASE 20 U/L (12-78); ALBUMIN 1.9 g/dL (3.4-4.8); ANION GAP 20 (5-15); ASPARTATE AMINOTRANSFERASE 26 U/L (10-37); CHLORIDE 88 mmol/L (98-107); CREATININE 3.52 mg/dL (0.55-1.30); GLUCOSE 195 mg/dL (70-99); PHOSPHORUS 7.9 mg/dL (2.7-4.5); POTASSIUM 4.3 mmol/L (3.5-5.1); SODIUM SERUM 123 mmol/L (136-145); TOTAL BILIRUBIN 0.6 mg/dL (0.0-1.0); UREA NITROGEN, BLOOD 57 mg/dL (8-21)
[2020-06-26] MEDS: GABAPENTIN 100 MG CAPSULE GT SCH ×3 (08:40→21:06)
[2020-06-26] MEDS: FAMOTIDINE 20 MG TABLET GT SCH (08:41)
[2020-06-26] MEDS: HYDROCHLOROTHIAZIDE 12.5 MG CAPSULE (HCTZ) GT SCH (08:42)
[2020-06-26] MEDS: amLODIPine BESYLATE 10 MG TABLET GT SCH (08:42)
[2020-06-26] MEDS: DEXAMETHASONE SOD PHOSPHATE 10 MG/ML VIAL IVP SCH (08:43)
[2020-06-26] MEDS: APIXABAN 2.5 MG TABLET GT SCH ×2 (08:45→21:24)
[2020-06-26] MEDS: LINEZOLID 300 ML IV SCH ×2 (08:46→21:11)
[2020-06-26 08:59] LABS: WHITE BLOOD COUNT (AUTO) 46.7 K/uL (4.8-10.8)
[2020-06-26] MEDS: CREON 36000 UNIT PO SCH ×3 (09:00→17:00)
[2020-06-26] MEDS: CHOLECALCIFEROL (VITAMIN D3) 5,000 UNIT TABLET PO SCH (09:00)
[2020-06-26] MEDS: EYE OP SCH ×3 (10:10→21:07)
[2020-06-26] MEDS: AZOPT 1% OP SCH ×3 (10:10→21:07)
[2020-06-26] MEDS: TIMOLOL MALEATE 0.5% OPHTHALMIC DROPS 5 ML OP SCH ×2 (10:10→21:07)
[2020-06-26 11:19] LABS: ERYTHROCYTE SEDIMENTATION RATE 87 MM/HR (0-20)
[2020-06-26] MEDS: ASCORBIC ACID 500 MG TABLET PO SCH ×2 (11:51→21:07)
[2020-06-26 12:21] LABS: C-REACTIVE PROTEIN QUANT 12.8 mg/dL (0-0.5)
[2020-06-26 12:22] LABS: BAND % (MANUAL) 11 % (0-6)
[2020-06-26 12:23] LABS: ATYPICAL LYMPHOCYTES % 0 % (0-0); BASOPHILS % (MANUAL) 0 % (0-2); EOSINOPHILS % (MANUAL) 0 % (0-7); LYMPHOCYTES % (MANUAL) 3 % (20-46); MONOCYTES % (MANUAL) 3 % (0-11)
[2020-06-26] MEDS: PIPERACILLIN/TAZO 2.25G/DEX-IS 50 ML IV SCH ×2 (13:48→22:00)
[2020-06-26] MEDS: NOREPINEPHRINE BITARTRATE 4 MG in D5W 246 ML IV PRN (18:55)
[2020-06-26] MEDS: MORPHINE I.V. DRIP 100 ML IV PRN (18:55)
[2020-06-26] MEDS: lisinopriL 20 MG TABLET GT SCH (21:00)
[2020-06-27] VITALS (22 sets, daily range): BP systolic 90–141
[2020-06-27] MEDS: ALBUTEROL MDI INHALATION 8 GM INH INH SCH ×7 (00:10→23:00)
[2020-06-27] MEDS: METOCLOPRAMIDE HCL 10 MG/2 ML VIAL IVP SCH ×4 (00:19→18:10)
[2020-06-27] MEDS: INSULIN REGULAR, HUMAN 100 UNITS/ML, 10 ML VIAL (humuLIN R) SUBCUT PRN ×3 (00:23→18:14)
[2020-06-27] MEDS ORDERED: MIDAZOLAM HCL IN 0.9 % NACL/PF 50 ML IV ONE ×2 (05:56→22:59)
[2020-06-27] MEDS ORDERED: NOREPINEPHRINE 4 MG/4 ML VIAL IV ONE (06:07)
[2020-06-27] MEDS: NOREPINEPHRINE BITARTRATE 4 MG in D5W 246 ML IV PRN (06:17)
[2020-06-27] MEDS: MIDAZOLAM HCL IN 0.9 % NACL/PF 50 ML IV PRN (06:18)
[2020-06-27] MEDS: MORPHINE I.V. DRIP 100 ML IV PRN (06:19)
[2020-06-27] MEDS: NORMAL SALINE 5 ML DISP.SYRIN IVF SCH ×3 (06:30→22:50)
[2020-06-27] MEDS: D5/0.45 NS 1,000 ML IV SCH ×2 (06:34→15:25)
[2020-06-27] MEDS: PIPERACILLIN/TAZO 2.25G/DEX-IS 50 ML IV SCH ×3 (06:36→22:50)
[2020-06-27 07:42] LABS: BASOPHILS # (AUTO) 0.1 K/uL (0.0-0.2); BASOPHILS % (AUTO) 0.3 % (0.0-2.0); EOSINOPHILS # (AUTO) 0.8 K/uL (0.0-0.4); EOSINOPHILS % (AUTO) 1.6 % (0.0-4.0); HEMATOCRIT 25.8 % (36-48); HEMOGLOBIN 8.2 g/dL (12.0-16.0); LYMPHOCYTES # (AUTO) 1.3 K/uL (1.0-5.5); LYMPHOCYTES % (AUTO) 2.6 % (20.5-51.5); MEAN CORPUSCULAR HEMOGLOBIN 29 pg (27-31); MEAN CORPUSCULAR HGB CONC 32 % (32-36); MEAN CORPUSCULAR VOLUME 91 fL (79.0-98.0); PLATELET COUNT (AUTO) 353 K/uL (130-430); RED BLOOD CELL COUNT(AUTO) 2.82 MIL/uL (4.2-6.2); RED CELL DISTRIBUTION WIDTH 13.7 % (9.0-15.0)
[2020-06-27 07:51] LABS: ANION GAP 19 (5-15); CALCIUM 7.8 mg/dL (8.4-11.0); CHLORIDE 86 mmol/L (98-107); CREATININE 3.69 mg/dL (0.55-1.30); GLUCOSE 266 mg/dL (70-99); PHOSPHORUS 8.2 mg/dL (2.7-4.5); POTASSIUM 4.6 mmol/L (3.5-5.1); UREA NITROGEN, BLOOD 60 mg/dL (8-21)
[2020-06-27 07:55] LABS: SODIUM SERUM 119 mmol/L (136-145)
[2020-06-27] MEDS: metFORMIN HCL 500 MG TABLET PO SCH ×2 (08:34→18:10)
[2020-06-27] MEDS: DEXAMETHASONE SOD PHOSPHATE 10 MG/ML VIAL IVP SCH (08:34)
[2020-06-27] MEDS: GABAPENTIN 100 MG CAPSULE GT SCH ×3 (08:34→21:00)
[2020-06-27] MEDS: FAMOTIDINE 20 MG TABLET GT SCH (08:34)
[2020-06-27] MEDS: APIXABAN 2.5 MG TABLET GT SCH (08:36)
[2020-06-27] MEDS: INSULIN NPH/REGULAR 70-30, 100 UNITS/ML, 10 ML VIAL SUBCUT SCH (08:36)
[2020-06-27] MEDS: HYDROCHLOROTHIAZIDE 12.5 MG CAPSULE (HCTZ) GT SCH (08:40)
[2020-06-27] MEDS: amLODIPine BESYLATE 10 MG TABLET GT SCH (08:40)
[2020-06-27] MEDS: VANCOMYCIN HCL ORAL SOLUTION 250 MG/5 ML, 80 ML NG SCH ×4 (09:00→21:00)
[2020-06-27] MEDS: CREON 36000 UNIT PO SCH ×3 (09:00→17:00)
[2020-06-27 09:17] LABS: WHITE BLOOD COUNT (AUTO) 50.3 K/uL (4.8-10.8)
[2020-06-27 09:18] LABS: NEUTROPHILS % (AUTO) 93.5 % (40.0-70.0)
[2020-06-27] MEDS: CHOLECALCIFEROL (VITAMIN D3) 5,000 UNIT TABLET PO SCH (09:23)
[2020-06-27] MEDS: ASCORBIC ACID 500 MG TABLET PO SCH ×2 (09:23→21:00)
[2020-06-27] MEDS: EYE OP SCH ×3 (09:24→21:00)
[2020-06-27] MEDS: TIMOLOL MALEATE 0.5% OPHTHALMIC DROPS 5 ML OP SCH ×2 (09:24→21:00)
[2020-06-27] MEDS: AZOPT 1% OP SCH ×3 (09:24→21:00)
[2020-06-27 11:14] LABS: ERYTHROCYTE SEDIMENTATION RATE 63 MM/HR (0-20)
[2020-06-27 11:18] LABS: C-REACTIVE PROTEIN QUANT 6.6 mg/dL (0-0.5)
[2020-06-27] MEDS ORDERED: METOCLOPRAMIDE HCL 10 MG/2 ML VIAL ONE (18:09)
[2020-06-27] MEDS ORDERED: NOREPINEPHRINE BITARTRATE 4 MG in NS 246 ML IV PRN (20:00)
[2020-06-27] MEDS: lisinopriL 20 MG TABLET GT SCH (21:00)
[2020-06-27] MEDS ORDERED: MORPHINE I.V. DRIP 100 ML IV PRN (21:45)
[2020-06-27] MEDS ORDERED: NALOXONE HCL 0.4 MG/ML AMP (NARCAN) IVP PRN (21:45)
[2020-06-27] MEDS ORDERED: MIDAZOLAM HCL IN 0.9 % NACL/PF 50 ML IV PRN ×2 (21:45→23:00)
[2020-06-28] VITALS (22 sets, daily range): BP systolic 98–126
[2020-06-28] MEDS ORDERED: DIGOXIN 0.5 MG/2 ML AMP IVP ONE (00:45)
[2020-06-28] MEDS ORDERED: DIGOXIN 0.5 MG/2 ML AMP ONE (00:51)
[2020-06-28] MEDS ORDERED: NOREPINEPHRINE 4 MG/4 ML VIAL IV ONE (01:23)
[2020-06-28] MEDS: INSULIN REGULAR, HUMAN 100 UNITS/ML, 10 ML VIAL (humuLIN R) SUBCUT PRN ×2 (02:14→12:20)
[2020-06-28] MEDS: ALBUTEROL MDI INHALATION 8 GM INH INH SCH ×6 (04:00→23:17)
[2020-06-28 06:58] LABS: HEMATOCRIT 24.1 % (36-48); HEMOGLOBIN 7.8 g/dL (12.0-16.0); MEAN CORPUSCULAR HEMOGLOBIN 29 pg (27-31); MEAN CORPUSCULAR HGB CONC 32 % (32-36); MEAN CORPUSCULAR VOLUME 91 fL (79.0-98.0); PLATELET COUNT (AUTO) 315 K/uL (130-430); RED BLOOD CELL COUNT(AUTO) 2.66 MIL/uL (4.2-6.2); RED CELL DISTRIBUTION WIDTH 13.4 % (9.0-15.0)
[2020-06-28] MEDS: NORMAL SALINE 5 ML DISP.SYRIN IVF SCH ×3 (07:16→22:00)
[2020-06-28] MEDS: PIPERACILLIN/TAZO 2.25G/DEX-IS 50 ML IV SCH ×3 (07:16→23:20)
[2020-06-28 07:19] LABS: WHITE BLOOD COUNT (AUTO) 47.3 K/uL (4.8-10.8)
[2020-06-28 07:32] LABS: ALANINE AMINOTRANSFERASE 23 U/L (12-78); ALBUMIN 1.8 g/dL (3.4-4.8); ASPARTATE AMINOTRANSFERASE 29 U/L (10-37); CHLORIDE 89 mmol/L (98-107); CREATININE 3.68 mg/dL (0.55-1.30); GLUCOSE 242 mg/dL (70-99); PHOSPHORUS 6.6 mg/dL (2.7-4.5); POTASSIUM 3.6 mmol/L (3.5-5.1); SODIUM SERUM 125 mmol/L (136-145); TOTAL BILIRUBIN 0.3 mg/dL (0.0-1.0); UREA NITROGEN, BLOOD 51 mg/dL (8-21)
[2020-06-28 08:36] LABS: ANION GAP 23 (5-15)
[2020-06-28 08:37] LABS: C-REACTIVE PROTEIN QUANT 8.1 mg/dL (0-0.5)
[2020-06-28 08:59] LABS: ERYTHROCYTE SEDIMENTATION RATE 65 MM/HR (0-20)
[2020-06-28] MEDS: HYDROCHLOROTHIAZIDE 12.5 MG CAPSULE (HCTZ) GT SCH (09:00)
[2020-06-28] MEDS: amLODIPine BESYLATE 10 MG TABLET GT SCH (09:00)
[2020-06-28] MEDS: CREON 36000 UNIT PO SCH ×3 (09:00→17:00)
[2020-06-28] MEDS: GABAPENTIN 100 MG CAPSULE GT SCH ×3 (09:17→23:34)
[2020-06-28] MEDS: ASCORBIC ACID 500 MG TABLET PO SCH ×2 (09:17→23:34)
[2020-06-28] MEDS: metFORMIN HCL 500 MG TABLET PO SCH ×2 (09:17→17:27)
[2020-06-28] MEDS: FAMOTIDINE 20 MG TABLET GT SCH (09:17)
[2020-06-28] MEDS: TIMOLOL MALEATE 0.5% OPHTHALMIC DROPS 5 ML OP SCH ×2 (09:18→21:00)
[2020-06-28] MEDS: AZOPT 1% OP SCH ×3 (09:18→21:00)
[2020-06-28] MEDS: DEXAMETHASONE SOD PHOSPHATE 10 MG/ML VIAL IVP SCH (09:18)
[2020-06-28] MEDS: CHOLECALCIFEROL (VITAMIN D3) 5,000 UNIT TABLET PO SCH (09:18)
[2020-06-28] MEDS: EYE OP SCH ×3 (09:18→21:00)
[2020-06-28] MEDS: APIXABAN 2.5 MG TABLET GT SCH ×2 (09:19→23:36)
[2020-06-28] MEDS: VANCOMYCIN HCL ORAL SOLUTION 250 MG/5 ML, 80 ML NG SCH ×4 (09:22→21:00)
[2020-06-28] MEDS: INSULIN NPH/REGULAR 70-30, 100 UNITS/ML, 10 ML VIAL SUBCUT SCH (09:24)
[2020-06-28 09:33] LABS: ATYPICAL LYMPHOCYTES % 0 % (0-0); BAND % (MANUAL) 12 % (0-6); BASOPHILS % (MANUAL) 0 % (0-2); EOSINOPHILS % (MANUAL) 0 % (0-7); LYMPHOCYTES % (MANUAL) 2 % (20-46); MONOCYTES % (MANUAL) 2 % (0-11)
[2020-06-28] MEDS ORDERED: METOCLOPRAMIDE HCL 10 MG/2 ML VIAL ONE ×2 (12:07→17:25)
[2020-06-28] MEDS: METOCLOPRAMIDE HCL 10 MG/2 ML VIAL IVP SCH ×3 (12:09→17:27)
[2020-06-28] MEDS ORDERED: NOREPINEPHRINE BITARTRATE 16 MG in NS 234 ML IV PRN ×4 (13:45)
[2020-06-28] MEDS ORDERED: lisinopriL 20 MG TABLET ONE (23:36)
[2020-06-28] MEDS: lisinopriL 20 MG TABLET GT SCH (23:40)
[2020-06-29] VITALS (12 sets, daily range): BP systolic 107–143
[2020-06-29] MEDS ORDERED: DEXTROSE 50% JECT 50 ML DISP.SYRIN IVP PRN (00:15)
[2020-06-29] MEDS ORDERED: D5W 1,000 ML IV PRN (00:15)
[2020-06-29] MEDS ORDERED: GLUCOSE (DEXTROSE) ORAL GEL -Adults PO PRN (00:15)
[2020-06-29] MEDS ORDERED: DEXTROSE 50% JECT 50 ML DISP.SYRIN ONE (00:20)
[2020-06-29] MEDS ORDERED: METOCLOPRAMIDE HCL 10 MG/2 ML VIAL ONE (00:32)
[2020-06-29] MEDS: METOCLOPRAMIDE HCL 10 MG/2 ML VIAL IVP SCH ×2 (00:38→06:00)
[2020-06-29] MEDS: ALBUTEROL MDI INHALATION 8 GM INH INH SCH ×4 (03:23→14:12)
[2020-06-29 05:23] LABS: CHLORIDE 90 mmol/L (98-107); CREATININE 2.09 mg/dL (0.55-1.30); GLUCOSE 104 mg/dL (70-99); PHOSPHORUS 2.7 mg/dL (2.7-4.5); POTASSIUM 3.9 mmol/L (3.5-5.1); SODIUM SERUM 125 mmol/L (136-145); UREA NITROGEN, BLOOD 36 mg/dL (8-21)
[2020-06-29 05:38] LABS: ANION GAP 19 (5-15)
[2020-06-29 06:33] LABS: MEAN CORPUSCULAR HEMOGLOBIN 29 pg (27-31); MEAN CORPUSCULAR HGB CONC 32 % (32-36); MEAN CORPUSCULAR VOLUME 92 fL (79.0-98.0); PLATELET COUNT (AUTO) 225 K/uL (130-430); RED BLOOD CELL COUNT(AUTO) 2.31 MIL/uL (4.2-6.2); RED CELL DISTRIBUTION WIDTH 13.8 % (9.0-15.0)
[2020-06-29] MEDS: INSULIN REGULAR, HUMAN 100 UNITS/ML, 10 ML VIAL (humuLIN R) SUBCUT PRN (07:30)
[2020-06-29] MEDS: PIPERACILLIN/TAZO 2.25G/DEX-IS 50 ML IV SCH (07:35)
[2020-06-29 09:15] LABS: WHITE BLOOD COUNT (AUTO) 41.2 K/uL (4.8-10.8)
[2020-06-29 09:16] LABS: HEMATOCRIT 21.1 % (36-48); HEMOGLOBIN 6.7 g/dL (12.0-16.0)
[2020-06-29 10:11] LABS: ERYTHROCYTE SEDIMENTATION RATE 94 MM/HR (0-20)
[2020-06-29 10:21] LABS: ATYPICAL LYMPHOCYTES % 0 % (0-0); BAND % (MANUAL) 16 % (0-6); BASOPHILS % (MANUAL) 0 % (0-2); EOSINOPHILS % (MANUAL) 0 % (0-7); LYMPHOCYTES % (MANUAL) 2 % (20-46); MONOCYTES % (MANUAL) 2 % (0-11)
[2020-06-29 10:40] LABS: C-REACTIVE PROTEIN QUANT 10.9 mg/dL (0-0.5)
== END 2020-06-29 16:27 | disposition expired | DRG 720 ==
LOC: SED 15:22 → STU 18:44 → SIC 06-18 07:00
PROVIDERS: ADMIT Preventive Medicine Preventive Medicine/Occupational Environmental Medicine; ATTEND Preventive Medicine Preventive Medicine/Occupational Environmental Medicine
PROC: 5A09457 Assistance with Respiratory Ventilation, 24-96 Consecutive Hours, Continuous Positive Airway Pressure (ICD-10-PCS; 2020-06-12)
PROC: 5A09457 Assistance with Respiratory Ventilation, 24-96 Consecutive Hours, Continuous Positive Airway Pressure (ICD-10-PCS; 2020-06-14)
PROC: XW033E5 Introduction of Remdesivir Anti-infective into Peripheral Vein, Percutaneous Approach, New Technology Group 5 (ICD-10-PCS; 2020-06-14)
PROC: 5A09357 Assistance with Respiratory Ventilation, Less than 24 Consecutive Hours, Continuous Positive Airway Pressure (ICD-10-PCS; 2020-06-17)
PROC: 5A1955Z Respiratory Ventilation, Greater than 96 Consecutive Hours (ICD-10-PCS; principal; 2020-06-18)
PROC: 0BH18EZ Insertion of Endotracheal Airway into Trachea, Via Natural or Artificial Opening Endoscopic (ICD-10-PCS; 2020-06-18)
PROC: 5A1D70Z Performance of Urinary Filtration, Intermittent, Less than 6 Hours Per Day (ICD-10-PCS; 2020-06-20)
PROC: 5A1D70Z Performance of Urinary Filtration, Intermittent, Less than 6 Hours Per Day (ICD-10-PCS; 2020-06-21)
PROC: 5A1D70Z Performance of Urinary Filtration, Intermittent, Less than 6 Hours Per Day (ICD-10-PCS; 2020-06-23)
PROC: 5A1D70Z Performance of Urinary Filtration, Intermittent, Less than 6 Hours Per Day (ICD-10-PCS; 2020-06-25)
PROC: 5A1D70Z Performance of Urinary Filtration, Intermittent, Less than 6 Hours Per Day (ICD-10-PCS; 2020-06-27)
PROC: 5A1D70Z Performance of Urinary Filtration, Intermittent, Less than 6 Hours Per Day (ICD-10-PCS; 2020-06-28)
DX: A41.9 Sepsis, unspecified organism (principal); U07.1 COVID-19; E43 Unspecified severe protein-calorie malnutrition; J12.82 Pneumonia due to coronavirus disease 2019; E11.40 Type 2 diabetes mellitus with diabetic neuropathy, unspecified; E87.1 Hypo-osmolality and hyponatremia; E87.6 Hypokalemia; E11.65 Type 2 diabetes mellitus with hyperglycemia; E88.09 Other disorders of plasma-protein metabolism, not elsewhere classified; R65.21 Severe sepsis with septic shock; E83.51 Hypocalcemia; D64.9 Anemia, unspecified; R53.81 Other malaise; D69.6 Thrombocytopenia, unspecified; N17.9 Acute kidney failure, unspecified; E83.39 Other disorders of phosphorus metabolism; E11.21 Type 2 diabetes mellitus with diabetic nephropathy; R13.10 Dysphagia, unspecified; J15.1 Pneumonia due to Pseudomonas; I82.621 Acute embolism and thrombosis of deep veins of right upper extremity; J80 Acute respiratory distress syndrome; E83.41 Hypermagnesemia; E87.2 Acidosis; A04.72 Enterocolitis due to Clostridium difficile, not specified as recurrent; K56.7 Ileus, unspecified; K56.609 Unspecified intestinal obstruction, unspecified as to partial versus complete obstruction; I10 Essential (primary) hypertension; G93.40 Encephalopathy, unspecified; E78.5 Hyperlipidemia, unspecified; Z68.25 Body mass index [BMI] 25.0-25.9, adult; Z99.11 Dependence on respirator [ventilator] status
CPT/HCPCS: 36415; 36430; 36600; 71045; 76376; 80048; 80053; 81000-TC; 82550-TC; 82570-TC; 82728; 82803-TC; 82962; 83605; 83615-TC; 83735-TC; 83880; 84100-TC; 84302-TC; 84484; 84550-TC; 85007; 85025; 85027; 85379; 85384-TC; 85610-TC; 85651-TC; 85730-TC; 86140; 87040-TC; 87070-TC; 87081; 87086; 87205-TC; 90935; 90937; 93005; 93971; 94002; 94003; 94640; 94660; 94664; 94760; 96365; 96368; 96375; 99291; C1751; G0378; J0456; J0696; J1100; J1160; J1644; J1815; J2020; J2060; J2270; J2543; J2704; J2765; J3370; J3480; J3490; J7030; J7050; J7060; P9046